=== PATIENT | male | born 1940 | race Caucasian/White ===

== ENCOUNTER 2016-06-11 14:22 | Emergency (ER) | payer OTHER ==
--- NOTE | 2016-06-11 14:51 | ED ---
SOB HPI - General Chief Complaint: Shortness of Breath Stated Complaint: SOB Time Seen by Provider: 06/11/16 14:46 Source: patient, RN notes reviewed Mode of arrival: wheelchair Limitations: no limitations - History of Present Illness Initial Comments: This is a 75-year-old male with a history of COPD who states he had the onset last night of shortness of breath that got worse this morning also. Chills and sweats last evening. He also states he has chest pain when he coughs or takes a deep breath. He denies coughing up any phlegm at this time. No rhinorrhea no other symptoms to report. MD Complaint: shortness of breath, cough - Related Data Home Medications Medication Instructions Recorded Confirmed Albuterol Sulfate [Proventil Hfa] 1 - 2 puff INHALATION RT-Q4H PRN 06/11/16 Budesonide-Formot 160-4.5 Mcg 2 puff INHALATION RT-BID 06/11/16 06/11/16 [Symbicort 160-4.5 Mcg Inhaler] Cyanocobalamin [Vitamin B-12] 500 mcg PO DAILY 06/11/16 06/11/16 Doxylamine Succinate [Unisom] 25 mg PO HS PRN 06/11/16 06/11/16 Vit A/Vit C/Vit E/Zinc/Copper 1 cap PO BID 06/11/16 06/11/16 [ICAPS SOFTGEL] Previous Rx's Medication Instructions Recorded Oseltamivir [Tamiflu] 75 mg PO Q12HR #10 cap 06/11/16 predniSONE 20 mg PO BID #10 tab 06/11/16 Allergies Allergy/AdvReac Type Severity Reaction Status Date / Time Penicillins Allergy Rash/Hives Verified 06/11/16 15:41 Review of Systems ROS Statement: Those systems with pertinent positive or pertinent negative responses have been documented in the HPI. ROS Other: All systems not noted in ROS Statement are negative. Past Medical History Past Medical History: COPD Additional Past Medical History / Comment(s): back pain History of Any Multi-Drug Resistant Organisms: None Reported Past Psychological History: No Psychological Hx Reported Smoking Status: Former smoker Past Alcohol Use History: None Reported Past Drug Use History: None Reported General Exam - General Exam Comments Initial Comments: This is a well-developed well-nourished awake alert oriented times 3 male Limitations: no limitations General appearance: alert, anxious Head exam: Present: atraumatic, normocephalic, normal inspection Eye exam: Present: normal appearance, PERRL, EOMI. Absent: scleral icterus, conjunctival injection, periorbital swelling ENT exam: Present: mucous membranes dry Neck exam: Present: normal inspection. Absent: tenderness, meningismus, lymphadenopathy Respiratory exam: Present: wheezes, chest wall tenderness, accessory muscle use , decreased breath sounds. Absent: respiratory distress, rales, rhonchi, stridor Cardiovascular Exam: Present: normal rhythm, tachycardia, normal heart sounds. Absent: systolic murmur, diastolic murmur, rubs, gallop, clicks GI/Abdominal exam: Present: soft, normal bowel sounds. Absent: distended, tenderness, guarding, rebound, rigid Extremities exam: Present: normal inspection, full ROM, normal capillary refill. Absent: tenderness, pedal edema, joint swelling, calf tenderness Back exam: Present: normal inspection Neurological exam: Present: alert, oriented X3, CN II-XII intact Psychiatric exam: Present: normal affect, normal mood Skin exam: Present: warm, dry, intact, normal color. Absent: rash Course Vital Signs 06/11/16 06/11/16 06/11/16 14:24 15:16 15:28 Temperature 97.8 F Pulse Rate 109 H 103 H 106 H Respiratory 24 Rate Blood Pressure 144/82 O2 Sat by Pulse 96 Oximetry - Reevaluation(s) Reevaluation #1: 06/11/16 15:43 Patient is feeling improved after the initial treatment. He was informed that he has influenza positive. Medical Decision Making - Medical Decision Making Reevaluation patient reveals he feels much improved this time he wants to go home he'll be discharged on appropriate medication he does have inhalers at home. He is a follow-up with his doctor return when necessary - Lab Data Result diagrams: 06/11/16 14:39 06/11/16 14:39 Lab Results 06/11/16 06/11/16 06/11/16 Range/Units 14:39 14:39 14:39 WBC 3.8 (3.8-10.6) k/uL RBC 4.66 (4.30-5.90) m/uL Hgb 13.8 (13.0-17.5) gm/dL Hct 42.9 (39.0-53.0) % MCV 92.1 (80.0-100.0) fL MCH 29.7 (25.0-35.0) pg MCHC 32.3 (31.0-37.0) g/dL RDW 15.1 (11.5-15.5) % PT (9.0-12.0) sec INR (<1.1) APTT (22.0-30.0) sec Sodium 143 (137-145) mmol/L Potassium 3.9 (3.5-5.1) mmol/L Chloride 107 (98-107) mmol/L Carbon Dioxide 24 (22-30) mmol/L Anion Gap 12 mmol/L BUN 12 (9-20) mg/dL Creatinine 0.78 (0.66-1.25) mg/dL Est GFR (MDRD) Af Amer >60 (>60 ml/min/1.73 sqM) Est GFR (MDRD) Non-Af >60 (>60 ml/min/1.73 sqM) Glucose 164 H (74-99) mg/dL Calcium 8.5 (8.4-10.2) mg/dL Magnesium 2.0 (1.6-2.3) mg/dL Total Bilirubin 0.6 (0.2-1.3) mg/dL AST 36 (17-59) U/L ALT 32 (21-72) U/L Alkaline Phosphatase 123 (38-126) U/L Total Creatine Kinase 180 H (55-170) U/L CK-MB (CK-2) 1.6 (0.0-2.4) ng/mL CK-MB (CK-2) Rel Index 0.9 Troponin I <0.012 (0.000-0.034) ng/mL NT-Pro-B Natriuret Pep pg/mL Total Protein 7.4 (6.3-8.2) g/dL Albumin 4.3 (3.5-5.0) g/dL Influenza Type A RNA (Not Detectd) Influenza Type B (PCR) (Not Detectd) 06/11/16 06/11/16 06/11/16 Range/Units 14:39 14:39 15:07 WBC (3.8-10.6) k/uL RBC (4.30-5.90) m/uL Hgb (13.0-17.5) gm/dL Hct (39.0-53.0) % MCV (80.0-100.0) fL MCH (25.0-35.0) pg MCHC (31.0-37.0) g/dL RDW (11.5-15.5) % PT 11.2 (9.0-12.0) sec INR 1.1 (<1.1) APTT 23.8 (22.0-30.0) sec Sodium (137-145) mmol/L Potassium (3.5-5.1) mmol/L Chloride (98-107) mmol/L Carbon Dioxide (22-30) mmol/L Anion Gap mmol/L BUN (9-20) mg/dL Creatinine (0.66-1.25) mg/dL Est GFR (MDRD) Af Amer (>60 ml/min/1.73 sqM) Est GFR (MDRD) Non-Af (>60 ml/min/1.73 sqM) Glucose (74-99) mg/dL Calcium (8.4-10.2) mg/dL Magnesium (1.6-2.3) mg/dL Total Bilirubin (0.2-1.3) mg/dL AST (17-59) U/L ALT (21-72) U/L Alkaline Phosphatase (38-126) U/L Total Creatine Kinase (55-170) U/L CK-MB (CK-2) (0.0-2.4) ng/mL CK-MB (CK-2) Rel Index Troponin I (0.000-0.034) ng/mL NT-Pro-B Natriuret Pep 55 pg/mL Total Protein (6.3-8.2) g/dL Albumin (3.5-5.0) g/dL Influenza Type A RNA Not Detected (Not Detectd) Influenza Type B (PCR) Detected H (Not Detectd) - EKG Data -: EKG Interpreted by Me EKG shows normal: sinus rhythm (Sinus tachycardia rate of 1 waited. Interval 172 QRS duration 96 QT/QTC of 3:30/[address].) - Radiology Data Radiology results: report reviewed (I did review the imaging and reports no acute findings.), image reviewed Disposition Clinical Impression: Influenza, Bronchospasm, acute Disposition: HOME SELF-CARE Condition: Good Instructions: Bronchospasm (ED), Influenza (ED) Prescriptions: Oseltamivir [Tamiflu] 75 mg PO Q12HR #10 cap predniSONE 20 mg PO BID #10 tab
[2016-06-11 15:10] LABS: Basophils % (A) 0 %; CH 29.5; CHCM 32.2; Eosinophils # (A) 0.1 k/uL (0-0.7); Eosinophils % (A) 2 %; HCT 42.9 % (39.0-53.0); HDW 2.92; HGB 13.8 gm/dL (13.0-17.5); Hypochromasia Slight; Luc # (Auto) 0.07; Luc % (Auto) 2; Lymphocytes # (A) 0.3 k/uL (1.0-4.8); Lymphocytes % (A) 9 %; MCH 29.7 pg (25.0-35.0); MCHC 32.3 g/dL (31.0-37.0); MCV 92.1 fL (80.0-100.0); Monocytes # (A) 0.3 k/uL (0-1.0); Monocytes % (A) 8 %; Neutrophils % (A) 80 %; RBC 4.66 m/uL (4.30-5.90); RDW 15.1 % (11.5-15.5); WBC 3.8 k/uL (3.8-10.6); WBC (Perox) 3.87
[2016-06-11] MEDS: SODIUM CHLORIDE 0.9% 1,000 ML IV STA (15:15)
[2016-06-11] MEDS: methylPREDNISolone SOD SUCCI 125 MG/2 ML VIAL IV STA (15:15)
[2016-06-11] MEDS: IPRATROPIUM-ALBUTEROL 3 ML NEB INHALATION STA (15:17)
[2016-06-11 15:20] LABS: ALT 32 U/L (21-72); AST 36 U/L (17-59); Alkaline Phosphatase 123 U/L (38-126); Anion Gap 12 mmol/L; Blood Urea Nitrogen 12 mg/dL (9-20); Calcium 8.5 mg/dL (8.4-10.2); Carbon Dioxide 24 mmol/L (22-30); Chloride 107 mmol/L (98-107); Glucose 164 mg/dL (74-99); Non-African American GFR(MDRD) >60 (>60 ml/min/1.73 sqM); Potassium 3.9 mmol/L (3.5-5.1); Sodium 143 mmol/L (137-145); Total Bilirubin 0.6 mg/dL (0.2-1.3); Total Protein 7.4 g/dL (6.3-8.2)
[2016-06-11 15:28] LABS: Creatine Kinase 180 U/L (55-170)
[2016-06-11 15:36] LABS: INR 1.1 (<1.1); Partial Thromboplastin Time 23.8 sec (22.0-30.0); Prothrombin Time 11.2 sec (9.0-12.0)
[2016-06-11 15:41] LABS: Creatine Kinase MB 1.6 ng/mL (0.0-2.4); Troponin I <0.012 ng/mL (0.000-0.034)
--- NOTE | 2016-06-11 16:21 | XR ---
EXAMINATION TYPE: XR chest 2V DATE OF EXAM: 06/11/2016 4:15 PM COMPARISON: Prior chest x-ray November 2011 HISTORY: Difficulty breathing, chills, COPD TECHNIQUE: Frontal and lateral views of the chest are obtained. FINDINGS: There is no focal air space opacity, pleural effusion, or pneumothorax seen. The cardiac silhouette size is within normal limits. Prominent lung volumes again noted. There are overlying car diac leads. The osseous structures are intact. IMPRESSION: No acute cardiopulmonary process.
[2016-06-11] MEDS: OSELTAMIVIR 75 MG CAP PO STA (16:36)
[2016-06-11 16:37] VITALS: BP 139/69; PULSE 100; RESP 20; TEMP 100.5
[2016-06-11] MEDS: ACETAMINOPHEN TAB 500 MG TAB PO STA (16:37)
[2016-06-11 16:47] LABS: Manual Review Performed; Polychromasia Present
== END 2016-06-11 16:48 | disposition home or self-care (01) ==
LOC: EC 14:22
DX: J98.01 Acute bronchospasm (principal); J11.1 Influenza due to unidentified influenza virus with other respiratory manifestations; R00.0 Tachycardia, unspecified; J44.9 Chronic obstructive pulmonary disease, unspecified; Z87.891 Personal history of nicotine dependence; Z79.51 Long term (current) use of inhaled steroids; Z79.899 Other long term (current) drug therapy; Z88.0 Allergy status to penicillin
CPT/HCPCS: 36415; 94640; 83880; 80053; 82550; 82553; 83735; 84484; 85025; 85610; 85730; 87040; 87502; 71020; 99285; 96374; 96361; J2930; 93005

== ENCOUNTER 2017-09-04 13:43 | Emergency (ER) | payer OTHER ==
[2017-09-04 14:11] VITALS: BP 130/72; PULSE 80; RESP 20; TEMP 97.9
[2017-09-04] MEDS ORDERED: PROPARACAINE 0.5% OPHTH DROPS 15 ML BTL BOTH EYES STA (14:48)
[2017-09-04] MEDS ORDERED: DIPH,PERTUS(ACELL)TETVAC-LF 0.5 ML VIAL IM ONE (15:17)
--- NOTE | 2017-09-04 15:17 | ED ---
General Adult HPI - General Chief complaint: Eye Problems Stated complaint: FB in eye Time Seen by Provider: 09/04/17 14:47 Source: patient, RN notes reviewed Mode of arrival: ambulatory Limitations: no limitations - History of Present Illness Initial comments: 76-year-old male presents to the emergency department for a chief complaint of foreign body in left eye. Patient states that yesterday he was cutting an exhaust on a car when a piece of metal got in his eye. Patient states it has been painful since then. Patient denies any other injuries. Patient states his vision seems somewhat blurry because his eye producing tears. Patient denies any black curtains or flashing lights. Patient denies any pain in the right eye. Patient has no other complaints at this time including shortness of breath, chest pain, abdominal pain, nausea or vomiting, headache, or visual changes. - Related Data Home Medications Medication Instructions Recorded Confirmed Albuterol Sulfate [Proventil Hfa] 1 - 2 puff INHALATION RT-Q4H PRN 06/11/16 Budesonide-Formot 160-4.5 Mcg 2 puff INHALATION RT-BID 06/11/16 06/11/16 [Symbicort 160-4.5 Mcg Inhaler] Cyanocobalamin [Vitamin B-12] 500 mcg PO DAILY 06/11/16 06/11/16 Doxylamine Succinate [Unisom] 25 mg PO HS PRN 06/11/16 06/11/16 Vit A/Vit C/Vit E/Zinc/Copper 1 cap PO BID 06/11/16 06/11/16 [ICAPS SOFTGEL] Previous Rx's Medication Instructions Recorded Oseltamivir [Tamiflu] 75 mg PO Q12HR #10 cap 06/11/16 predniSONE 20 mg PO BID #10 tab 06/11/16 Erythromycin Ophth Oint [Romycin 1 applic LEFT EYE Q6H 5 Days gm 09/04/17 Ophth Oint] Allergies Allergy/AdvReac Type Severity Reaction Status Date / Time Penicillins Allergy Rash/Hives Verified 09/04/17 14:11 Review of Systems ROS Statement: Those systems with pertinent positive or pertinent negative responses have been documented in the HPI. ROS Other: All systems not noted in ROS Statement are negative. Past Medical History Past Medical History: COPD Additional Past Medical History / Comment(s): back pain History of Any Multi-Drug Resistant Organisms: None Reported Past Psychological History: No Psychological Hx Reported Smoking Status: Former smoker Past Alcohol Use History: None Reported Past Drug Use History: None Reported General Exam Limitations: no limitations General appearance: alert, in no apparent distress Head exam: Present: atraumatic, normocephalic, normal inspection Eye exam: Present: PERRL, EOMI, conjunctival injection, other (There is a submillimeter foreign body noted at about 9:00 in the iris of the cornea left eye). Absent: scleral icterus, nystagmus, periorbital swelling, periorbital tenderness ENT exam: Present: normal exam, normal oropharynx, mucous membranes moist, TM's normal bilaterally Neck exam: Present: normal inspection, full ROM. Absent: tenderness, meningismus, lymphadenopathy Respiratory exam: Present: normal lung sounds bilaterally. Absent: respiratory distress, wheezes, rales, rhonchi, stridor Cardiovascular Exam: Present: regular rate, normal rhythm, normal heart sounds. Absent: systolic murmur, diastolic murmur, rubs, gallop, clicks Course Vital Signs 09/04/17 14:09 Temperature 97.9 F Pulse Rate 80 Respiratory 20 Rate Blood Pressure 130/72 O2 Sat by Pulse 98 Oximetry Medical Decision Making - Medical Decision Making 76-year-old male presents to the emergency department for a chief complaint of corneal foreign body 2 days. Patient was cutting an exhaust pipe when he felt a foreign body in his left eye. Patient denies visual changes besides blurriness from tear production. Patient states the eye is painful. Patient denies any headache or visual changes in the other eye. On exam there is a small submillimeter foreign body noted in the left eye cornea about 9:00. The eye was numbed with proparacaine and foreign body was removed with a sterile Q- tip. Rust ring did remain. Dr. Tejada used [place] brush to remove the rust ring along with a slit lamp. No complications. Rust ring was removed without difficulty. No other foreign bodies in the eye upon inspection and including under both lids. Patient will be discharged home with erythromycin ophthalmic ointment. He is to follow up with primary care. If symptoms continue he is to follow-up with an certified surgical first assistant. He is aware he can return to the emergency department if he has any other worsening symptoms. Disposition Clinical Impression: Corneal foreign body Disposition: HOME SELF-CARE Condition: Good Instructions: Corneal Abrasion (ED), Eye Foreign Body (ED) Additional Instructions: Please use eye ointment every 4-6 hours as directed. Use ice packs for comfort. If pain continues for 2-3 days follow-up with ophthalmology. Follow up with primary care as well. Return to the emergency department if you have any worsening symptoms. Prescriptions: Erythromycin Ophth Oint [Romycin Ophth Oint] 1 applic LEFT EYE Q6H 5 Days gm Is patient prescribed a controlled substance at d/c from ED?: No Referrals: [facility] [Primary Care Provider] - 1-2 days Jeremías Garcia MD [STAFF PHYSICIAN] - 1-2 days Time of Disposition: 15:46
== END 2017-09-04 15:52 | disposition home or self-care (01) ==
LOC: EC 13:43
DX: T15.02XA Foreign body in cornea, left eye, initial encounter (principal); Z23 Encounter for immunization; J44.9 Chronic obstructive pulmonary disease, unspecified; Z87.891 Personal history of nicotine dependence; Z79.51 Long term (current) use of inhaled steroids; Z79.899 Other long term (current) drug therapy; Z88.0 Allergy status to penicillin; X58.XXXA Exposure to other specified factors, initial encounter; Y93.89 Activity, other specified; Y92.89 Other specified places as the place of occurrence of the external cause
CPT/HCPCS: 65222; 90471; 90715; 99283

== ENCOUNTER 2018-06-23 20:05 | Emergency (ER) | payer OTHER ==
[2018-06-23 20:40] VITALS: RESP 18
[2018-06-23] MEDS ORDERED: ONDANSETRON 4 MG/2 ML VIAL IVP STA (20:44)
[2018-06-23] MEDS ORDERED: PANTOPRAZOLE 40 MG/10 ML VIAL IVP STA (20:44)
[2018-06-23] MEDS ORDERED: SODIUM CHLORIDE 0.9% 1,000 ML IV STA (20:44)
--- NOTE | 2018-06-23 20:53 | ED ---
General Adult HPI - General Chief complaint: Nausea/Vomiting/Diarrhea Stated complaint: Abd Pain Time Seen by Provider: 06/23/18 20:33 Source: patient, family, RN notes reviewed Mode of arrival: ambulatory Limitations: no limitations - History of Present Illness Initial comments: Chief complaint and history of present illness this is a 77-year-old man here with his family member. The patient has had nausea vomiting and diarrhea since last night. No blood in the vomit or diarrhea. He does not think he had any bad food. He has lower abdominal cramping. Never had any problem like this before. - Related Data Home Medications Medication Instructions Recorded Confirmed Albuterol Sulfate [Proventil Hfa] 1 - 2 puff INHALATION RT-Q4H PRN 06/11/16 06/11/16 Budesonide-Formot 160-4.5 Mcg 2 puff INHALATION RT-BID 06/11/16 06/11/16 [Symbicort 160-4.5 Mcg Inhaler] Cyanocobalamin [Vitamin B-12] 500 mcg PO DAILY 06/11/16 06/11/16 Doxylamine Succinate [Unisom] 25 mg PO HS PRN 06/11/16 06/11/16 Vit A/Vit C/Vit E/Zinc/Copper 1 cap PO BID 06/11/16 06/11/16 [ICAPS SOFTGEL] Previous Rx's Medication Instructions Recorded Oseltamivir [Tamiflu] 75 mg PO Q12HR #10 cap 06/11/16 predniSONE 20 mg PO BID #10 tab 06/11/16 Erythromycin Ophth Oint [Romycin 1 applic LEFT EYE Q6H 5 Days gm 09/04/17 Ophth Oint] Ondansetron Odt [Zofran ODT] 4 mg PO Q8HR PRN #5 tab 06/24/18 Allergies Allergy/AdvReac Type Severity Reaction Status Date / Time Penicillins Allergy Rash/Hives Verified 09/04/17 14:11 Review of Systems ROS Statement: Those systems with pertinent positive or pertinent negative responses have been documented in the HPI. Review of systems. Patient denies headache no visual acuity changes. Denies any chest pain or shortness of breath. Mild lower abdominal cramping. He rep orts she's had as many episodes of vomiting as he has had diarrhea. No blood again. The patient denies any neuro deficits. All systems were otherwise reviewed. Past medical problems COPD. The patient quit smoking 25 years ago. Patient has chronic back pain. Surgeries include tonsils and adenoids and his years. Family history Brother and father both had cancer but of unknown types to him. The patient has ALLERGIES to penicillin which causes a rash only. Again noted that he quit smoking over 25 years ago quit drinking over 50 years ago ROS Other: All systems not noted in ROS Statement are negative. Past Medical History Past Medical History: COPD Additional Past Medical History / Comment(s): back pain History of Any Multi-Drug Resistant Organisms: None Reported Past Surgical History: No Surgical Hx Reported Past Psychological History: No Psychological Hx Reported Smoking Status: Former smoker Past Alcohol Use History: None Reported Past Drug Use History: None Reported General Exam - General Exam Comments Initial Comments: General: The patient is awake and alert, here with a chief complaint of vomiting and diarrhea. Vital signs shows temperature 98.2 pulse 97 respiratory rate 22 pulse ox 97% room air blood pressure 132/70 Eye: Pupils are equal, round and reactive to light, extra-ocular movements are intact; there is normal conjunctiva bilaterally. No signs of icterus. Ears, nose, mouth and throat: There are moist mucous membranes and no oral lesions. Patient is nearly edentulous. Neck: The neck is supple, there is no tenderness. Cardiovascular: There is a regular rate and rhythm. No murmur, rub or gallop is appreciated. Respiratory: Lungs are clear to auscultation, respirations are non-labored, breath sounds are equal. No wheezes, stridor, rales, or rhonchi. Gastrointestinal: Mild tenderness with deep palpation. No organomegaly appreciated. Active bowel sounds. No rebound or referred pain. Back: There is no tenderness to palpation in the midline.. Musculoskeletal: Normal ROM, no tenderness, There is no pedal edema. There is no calf tenderness or swelling. Sensation intact.. Neurological: No complaint of any dizziness, no focal or lateralizing findings. Skin: Skin is warm and dry and no rashes or lesions are noted. Psychiatric: Cooperative, Limitations: no limitations Course Vital Signs 06/23/18 06/23/18 06/23/18 20:06 20:39 21:29 Temperature 98.2 F Pulse Rate 97 89 82 Respiratory 22 18 18 Rate Blood Pressure 132/70 133/79 124/76 O2 Sat by Pulse 97 93 L 93 L Oximetry 04/10/19 23:32 Temperature Pulse Rate 83 Respiratory 18 Rate Blood Pressure 120/77 O2 Sat by Pulse 93 L Oximetry Medical Decision Making - Medical Decision Making Medical decision making; is a 77-year-old male here with family. The patient has been complaining of nausea vomiting and diarrhea for 24 hours. Minimal discomfort mild cramping lower abdomen. No blood in the vomit or stool. The patient's white count is 4.5 hemoglobin 13 hematocrit 41 with potassium 3.5. BUN 14 creatinine 0.6 with a GFR greater than 90. Glucose 182. Total bilirubin mildly elevated at 1.6 AST mildly elevated at 106 ALT normal. Amylase lipase within normal limits. C. diff negative Patient had ultrasound of the right upper quadrant. The radiologist's findings include increased hepatic echotexture most suggestive of hepatic fatty infiltration. No focal hepatic abnormalities. The gallbladder echo densities suggesting gallbladder sludge or possible tiny gallstones. No evidence of gallbladder wall thickening. No. Cholecystic fluid identified., Bile duct is a non-dilated measuring 2.3 mm. Pancreas is not well-defined are visualized. Right kidney is of normal size and echotexture. No hydronephrosis. Impression increased hepatic echotexture most suggestive of hepatic fatty infiltration. Gallbladder echo densities suggesting gallbladder sludge or possible tiny gallstones. No evidence of gallbladder wall thickening or biliary dilatation. Read by Dr. Alegria Chest x-ray is done AP and lateral view radiologist's impression is a mild coarsening of the lung markings consistent with mild interstitial pneumonia that is unchanged compared to last exam. No heart failure. As read by Dr. Love Patient does not have a cough nor fever nor white count. X-ray of the abdomen was done and reviewed by radiologist his impression is intraperitoneal space; bowel gas pattern is unremarkable. No evidence of bowel obstruction or pneumoperitoneum. No bowel dilatation. 2 small calcifications projecting to the right upper quadrant suggesting calcified gallstones. Radiopaque densities within bowel could be a differential possibility. Mild degenerative changes involving the lumbar spine. Impression no evidence of bowel obstruction or pneumoperitoneum. Probable small calcified gallstones. Gallbladder ultrasound may be considered for further evaluation. As read by Dr. Alegria This time the patient's leg in bed drinking water without difficulty states he feels much better. No cramps, patient will be advised to use Pepto-Bismol. He'll be given prescription for Zofran to be taken as directed. Advance his diet. We did discuss gallbladder sludge and possible stones. Patient be advised to follow-up with family physician. - Lab Data Result diagrams: 06/23/18 20:46 06/23/18 20:46 Lab Results 06/23/18 06/23/18 06/23/18 Range/Units 20:46 20:46 23:45 WBC 4.5 (3.8-10.6) k/uL RBC 4.18 L (4.30-5.90) m/uL Hgb 13.5 (13.0-17.5) gm/dL Hct 41.0 (39.0-53.0) % MCV 98.0 (80.0-100.0) fL MCH 32.2 (25.0-35.0) pg MCHC 32.9 (31.0-37.0) g/dL RDW 14.9 (11.5-15.5) % Plt Count 53 L (150-450) k/uL Neutrophils % 85 % Lymphocytes % 8 % Monocytes % 4 % Eosinophils % 1 % Basophils % 0 % Neutrophils # 3.8 (1.3-7.7) k/uL Lymphocytes # 0.4 L (1.0-4.8) k/uL Monocytes # 0.2 (0-1.0) k/uL Eosinophils # 0.1 (0-0.7) k/uL Basophils # 0.0 (0-0.2) k/uL Manual Slide Review Performed Sodium 137 (137-145) mmol/L Potassium 3.5 (3.5-5.1) mmol/L Chloride 104 (98-107) mmol/L Carbon Dioxide 23 (22-30) mmol/L Anion Gap 10 mmol/L BUN 14 (9-20) mg/dL Creatinine 0.61 L (0.66-1.25) mg/dL Est GFR (CKD-EPI)AfAm >90 (>60 ml/min/1.73 sqM) Est GFR (CKD-EPI)NonAf >90 (>60 ml/min/1.73 sqM) Glucose 182 H (74-99) mg/dL Calcium 8.5 (8.4-10.2) mg/dL Total Bilirubin 1.6 H (0.2-1.3) mg/dL AST 106 H (17-59) U/L ALT 61 (21-72) U/L Alkaline Phosphatase 98 (38-126) U/L Total Protein 6.4 (6.3-8.2) g/dL Albumin 3.7 (3.5-5.0) g/dL Amylase <30 L (30-110) U/L Lipase 46 (23-300) U/L C. difficile (EIA) Intrp Negative (Negative) Disposition Clinical Impression: Gastroenteritis Disposition: HOME SELF-CARE Condition: Fair Instructions (If sedation given, give patient instructions): Acute Nausea and Vomiting (ED), Acute Diarrhea (ED) Additional Instructions: Advance diet as, use Pepto-Bismol as directed. Use Zofran to control nausea as directed. Follow-up with family physician return emergency room as needed. Prescriptions: Ondansetron Odt [Zofran ODT] 4 mg PO Q8HR PRN #5 tab PRN Reason: Nausea Is patient prescribed a controlled substance at d/c from ED?: No Referrals: [facility] [Primary Care Provider] - 1-2 days Time of Disposition: 01:15
[2018-06-23 21:06] LABS: ALT 61 U/L (21-72); AST 106 U/L (17-59); Albumin 3.7 g/dL (3.5-5.0); Alkaline Phosphatase 98 U/L (38-126); Amylase <30 U/L (30-110); Anion Gap 10 mmol/L; Blood Urea Nitrogen 14 mg/dL (9-20); Calcium 8.5 mg/dL (8.4-10.2); Carbon Dioxide 23 mmol/L (22-30); Chloride 104 mmol/L (98-107); Glucose 182 mg/dL (74-99); Lipase 46 U/L (23-300); Potassium 3.5 mmol/L (3.5-5.1); Sodium 137 mmol/L (137-145); Total Bilirubin 1.6 mg/dL (0.2-1.3); Total Protein 6.4 g/dL (6.3-8.2)
[2018-06-23 21:12] LABS: Basophils % (A) 0 %; Eosinophils # (A) 0.1 k/uL (0-0.7); Eosinophils % (A) 1 %; HGB 13.5 gm/dL (13.0-17.5); Lymphocytes # (A) 0.4 k/uL (1.0-4.8); Lymphocytes % (A) 8 %; MCH 32.2 pg (25.0-35.0); MCHC 32.9 g/dL (31.0-37.0); Mean Platelet Volume 8.5; Monocytes # (A) 0.2 k/uL (0-1.0); Monocytes % (A) 4 %; Neutrophils # (A) 3.8 k/uL (1.3-7.7); Neutrophils % (A) 85 %; RBC 4.18 m/uL (4.30-5.90); RDW 14.9 % (11.5-15.5); WBC 4.5 k/uL (3.8-10.6)
--- NOTE | 2018-06-23 21:17 | XR ---
EXAMINATION TYPE: XR chest 2V DATE OF EXAM: 06/23/2018 COMPARISON: 06/11/2016 HISTORY: Difficulty breathing and chills TECHNIQUE: Frontal and lateral views of the chest are obtained. FINDINGS: Heart and mediastinum are normal. There is some coarsening of interstitial markings. There is no pleural effusion. Bony thorax is intact. There is no evidence of a pulmonary mass. Thoracic sp ine is intact. IMPRESSION: Mild coarsening of the lung markings consistent with mild interstitial pneumonia that is unchanged compared to last exam. No heart failure.
[2018-06-23 21:25] LABS: Platelet Count 53 k/uL (150-450)
--- NOTE | 2018-06-23 22:32 | XR ---
EXAM: XR Abdomen, 1 View CLINICAL HISTORY: Reason: Gastroenteritis, lower abdominal cramping TECHNIQUE: Frontal view of the abdomen/pelvis - upright COMPARISON: None available FINDINGS: Intraperitoneal space: Bowel gas pattern is unremarkable. No evidence of bowel obstruction or pneumoperitoneum. Gastrointestinal tract: No bowel dilatation. Organs: 2 small calcifications projecting to right upper quadrant suggesting calcified gallstones. Radiopaque densities within bowel would be a differential possibility. Bones/joints: Mild degenerative changes involve lumbar spine. IMPRESSION: No evidence of bowel obstruction or pneumoperitoneum. Probable small calcified gallstones. Gallbladder ultrasound may be considered for further evaluation.
[2018-06-23 23:34] VITALS: PULSE 83
--- NOTE | 2018-06-24 00:51 | US ---
EXAM: US Abdomen Limited, Right Upper Quadrant CLINICAL HISTORY: Reason: Gallstones, elev bilirubin, right-sided abdom pain TECHNIQUE: Real-time ultrasound of the right upper quadrant with image documentation. COMPARISON: Abdominal radiographs 06/23/2018 FINDINGS: Liver: Increased hepatic echotexture most suggestive of hepatic fatty infiltration. No focal hepatic abnormalities. Gallbladder: Gallbladder echodensities suggesting gallbladder sludge or possible tiny gallstones. No evidence of gallbladder wall thickening. No pericholecystic fluid identified. Common bile duct: Common bile duct is nondilated measuring 2.3 mm. Pancreas: Pancreas is not well-visualized. Right kidney: Right kidney is of normal size and echotexture. No hydronephrosis. IMPRESSION: Increased hepatic echotexture most suggestive of hepatic fatty infiltration. Gallbladder echodensities suggesting gallbladder sludge or possible tiny gallstones. No evidence of gallbladder wall thickening or biliary dilatation.
[2018-06-24 01:28] VITALS: BP 122/80; TEMP 98
== END 2018-06-24 01:26 | disposition home or self-care (01) ==
LOC: EC 20:05
DX: K52.9 Noninfective gastroenteritis and colitis, unspecified (principal); J44.9 Chronic obstructive pulmonary disease, unspecified; Z87.891 Personal history of nicotine dependence; Z79.51 Long term (current) use of inhaled steroids; Z79.899 Other long term (current) drug therapy; Z88.0 Allergy status to penicillin; Z80.8 Family history of malignant neoplasm of other organs or systems
CPT/HCPCS: 36415; 80053; 82150; 83690; 85025; 87324; 71046; 74018; 99284; 96374; 96375; 96361; J2405; C9113; 76705

== ENCOUNTER 2019-03-11 12:53 | Inpatient (IN) | payer OTHER, MEDICARE ==
[2019-03-11 14:08] LABS: Basophils % (A) 0 %; Eosinophils # (A) 0.1 k/uL (0-0.7); Eosinophils % (A) 2 %; HCT 40.1 % (39.0-53.0); Lymphocytes # (A) 0.4 k/uL (1.0-4.8); Lymphocytes % (A) 17 %; MCH 32.3 pg (25.0-35.0); MCHC 32.4 g/dL (31.0-37.0); MCV 99.5 fL (80.0-100.0); Mean Platelet Volume 8.5; Monocytes # (A) 0.2 k/uL (0-1.0); Monocytes % (A) 8 %; Neutrophils # (A) 1.8 k/uL (1.3-7.7); Neutrophils % (A) 72 %; RBC 4.03 m/uL (4.30-5.90); RDW 13.8 % (11.5-15.5); WBC 2.6 k/uL (3.8-10.6)
[2019-03-11 14:17] LABS: Platelet Count 65 k/uL (150-450)
[2019-03-11 14:21] LABS: ALT 18 U/L (4-49); AST 40 U/L (17-59); African American GFR (CKD) >90 (>60 ml/min/1.73 sqM); Albumin 3.6 g/dL (3.5-5.0); Alkaline Phosphatase 134 U/L (38-126); Amylase 37 U/L (30-110); Anion Gap 7 mmol/L; Blood Urea Nitrogen 16 mg/dL (9-20); Calcium 8.7 mg/dL (8.4-10.2); Carbon Dioxide 24 mmol/L (22-30); Chloride 110 mmol/L (98-107); Glucose 103 mg/dL (74-99); Non-African American GFR(CKD) >90 (>60 ml/min/1.73 sqM); Potassium 3.7 mmol/L (3.5-5.1); Sodium 141 mmol/L (137-145); Total Bilirubin 0.9 mg/dL (0.2-1.3); Total Protein 6.6 g/dL (6.3-8.2)
--- NOTE | 2019-03-11 14:28 | ED ---
Abdominal Pain HPI - General Chief Complaint: Abdominal Pain Stated Complaint: Abd pain Time Seen by Provider: 03/11/19 14:06 Source: patient Mode of arrival: ambulatory Limitations: no limitations - History of Present Illness Initial Comments: 78-year-old male presenting for abdominal pain times one week with diarrhea. Patient states he noticed his abdomen is enlarging and he had diarrhea last week that subsided however he continued to have severe abdominal pain and right sided. Patient states he feels that his abdomen stretching is very taut and distended. Patient denies any chest pain or increased shortness of breath is baseline. Patient states she is only short of breath he does not want any treatment for he states he'll take his inhaler if he needs it as he has chronic COPD. Patient denies any nausea or vomiting. Patient denies a known history of cancer. Patient states he was a previous alcoholic denies a known history of cirrhosis. Patient denies fevers or flulike symptoms. Patient denies a known history of liver cancer. Patient has no other complaints otherwise nontoxic appearing on arrival, does appear SOB - Related Data Home Medications Medication Instructions Recorded Confirmed Albuterol Sulfate [Proventil Hfa] 1 - 2 puff INHALATION RT-Q4H PRN 06/11/16 06/11/16 Budesonide-Formot 160-4.5 Mcg 2 puff INHALATION RT-BID 06/11/16 06/11/16 [Symbicort 160-4.5 Mcg Inhaler] Cyanocobalamin [Vitamin B-12] 500 mcg PO DAILY 06/11/16 06/11/16 Doxylamine Succinate [Unisom] 25 mg PO HS PRN 06/11/16 06/11/16 Vit A/Vit C/Vit E/Zinc/Copper 1 cap PO BID 06/11/16 06/11/16 [ICAPS SOFTGEL] Previous Rx's Medication Instructions Recorded Oseltamivir [Tamiflu] 75 mg PO Q12HR #10 cap 06/11/16 predniSONE 20 mg PO BID #10 tab 06/11/16 Erythromycin Ophth Oint [Romycin 1 applic LEFT EYE Q6H 5 Days gm 09/04/17 Ophth Oint] Ondansetron Odt [Zofran ODT] 4 mg PO Q8HR PRN #5 tab 06/24/18 Allergies Allergy/AdvReac Type Severity Reaction Status Date / Time Penicillins Allergy Rash/Hives Verified 03/11/19 13:06 Review of Systems ROS Statement: Those systems with pertinent positive or pertinent negative responses have been documented in the HPI. ROS Other: All systems not noted in ROS Statement are negative. Past Medical History Past Medical History: COPD Additional Past Medical History / Comment(s): back pain History of Any Multi-Drug Resistant Organisms: None Reported Past Surgical History: No Surgical Hx Reported Past Psychological History: No Psychological Hx Reported Smoking Status: Former smoker Past Alcohol Use History: None Reported Past Drug Use History: None Reported General Exam - General Exam Comments Initial Comments: General: The patient is awake and alert, in no distress Eye: +3 mm pupils are equal, round and reactive to light, extra-ocular movements are intact. No nystagmus. There is normal conjunctiva bilaterally. No signs of icterus. Ears, nose, mouth and throat: There are moist mucous membranes and no oral lesions. Neck: The neck is supple, there is no tenderness or JVD. Cardiovascular: There is a regular rate and rhythm. No murmur, rub or gallop is appreciated. Respiratory: respirations are non-labored, breath sounds are equal. Mild expiratory wheeze, with rhonchi. No stridor, rales, or rhonchi. Gastrointestinal: Soft, distended, prominent vasculature on abdomen, diffusely tender abdomen abdomen without masses noted hepatomegaly. There is no rebound or guarding present. Musculoskeletal: Normal ROM, no tenderness. Strength 5/5. Sensation intact. Pulses equal bilaterally 2+. Neurological: A&O x 3. CN II-XII intact grossly, There are no obvious motor or sensory deficits. Coordination appears grossly intact. Speech is normal. Skin: Skin is warm and dry and no rashes or lesions are noted. Psychiatric: Cooperative, appropriate mood & affect, normal judgment. Limitations: no limitations Course Vital Signs 03/11/19 03/11/19 03/11/19 13:03 14:58 15:00 Temperature 97.4 F L Pulse Rate 97 Respiratory 18 24 22 Rate Blood Pressure 139/83 O2 Sat by Pulse 94 L Oximetry 03/11/19 16:20 Temperature Pulse Rate 72 Respiratory 22 Rate Blood Pressure O2 Sat by Pulse 97 Oximetry Medical Decision Making - Medical Decision Making 78-year-old male presenting for abdominal pain. Obvious distention on physical examination. History of alcohol abuse, denies current use. CT revealed cirrhosis as well as ascites given the amount of ascites in all 4 quadrants I feel this time patient needs paracentesis. No fevers. Patient was offered admission or outpatient paracentesis he states he would prefer admission given the amount of pain. Patient has been ordered when necessary pain medications and will be admitted to the hospital for drainage of ascites by interventional radiology gastroenterology on consultation discussed case with any provider Dr. Rueda who spoke with admitting provider Dr. Win. - Lab Data Result diagrams: 03/11/19 13:53 03/11/19 13:53 Lab Results 03/11/19 03/11/19 03/11/19 Range/Units 13:53 13:53 14:33 WBC 2.6 L (3.8-10.6) k/uL RBC 4.03 L (4.30-5.90) m/uL Hgb 13.0 (13.0-17.5) gm/dL Hct 40.1 (39.0-53.0) % MCV 99.5 (80.0-100.0) fL MCH 32.3 (25.0-35.0) pg MCHC 32.4 (31.0-37.0) g/dL RDW 13.8 (11.5-15.5) % Plt Count 65 L (150-450) k/uL Neutrophils % 72 % Lymphocytes % 17 % Monocytes % 8 % Eosinophils % 2 % Basophils % 0 % Neutrophils # 1.8 (1.3-7.7) k/uL Lymphocytes # 0.4 L (1.0-4.8) k/uL Monocytes # 0.2 (0-1.0) k/uL Eosinophils # 0.1 (0-0.7) k/uL Basophils # 0.0 (0-0.2) k/uL Manual Slide Review Performed RBC Morphology Normal Sodium 141 (137-145) mmol/L Potassium 3.7 (3.5-5.1) mmol/L Chloride 110 H (98-107) mmol/L Carbon Dioxide 24 (22-30) mmol/L Anion Gap 7 mmol/L BUN 16 (9-20) mg/dL Creatinine 0.61 L (0.66-1.25) mg/dL Est GFR (CKD-EPI)AfAm >90 (>60 ml/min/1.73 sqM) Est GFR (CKD-EPI)NonAf >90 (>60 ml/min/1.73 sqM) Glucose 103 H (74-99) mg/dL Plasma Lactic Acid [place] (0.7-2.0) mmol/L Calcium 8.7 (8.4-10.2) mg/dL Total Bilirubin 0.9 (0.2-1.3) mg/dL AST 40 (17-59) U/L ALT 18 (4-49) U/L Alkaline Phosphatase 134 H (38-126) U/L NT-Pro-B Natriuret Pep 127 pg/mL Total Protein 6.6 (6.3-8.2) g/dL Albumin 3.6 (3.5-5.0) g/dL Amylase 37 (30-110) U/L Lipase 63 (23-300) U/L 03/11/19 Range/Units 14:33 WBC (3.8-10.6) k/uL RBC (4.30-5.90) m/uL Hgb (13.0-17.5) gm/dL Hct (39.0-53.0) % MCV (80.0-100.0) fL MCH (25.0-35.0) pg MCHC (31.0-37.0) g/dL RDW (11.5-15.5) % Plt Count (150-450) k/uL Neutrophils % % Lymphocytes % % Monocytes % % Eosinophils % % Basophils % % Neutrophils # (1.3-7.7) k/uL Lymphocytes # (1.0-4.8) k/uL Monocytes # (0-1.0) k/uL Eosinophils # (0-0.7) k/uL Basophils # (0-0.2) k/uL Manual Slide Review RBC Morphology Sodium (137-145) mmol/L Potassium (3.5-5.1) mmol/L Chloride (98-107) mmol/L Carbon Dioxide (22-30) mmol/L Anion Gap mmol/L BUN (9-20) mg/dL Creatinine (0.66-1.25) mg/dL Est GFR (CKD-EPI)AfAm (>60 ml/min/1.73 sqM) Est GFR (CKD-EPI)NonAf (>60 ml/min/1.73 sqM) Glucose (74-99) mg/dL Plasma Lactic Acid [place] 1.9 (0.7-2.0) mmol/L Calcium (8.4-10.2) mg/dL Total Bilirubin (0.2-1.3) mg/dL AST (17-59) U/L ALT (4-49) U/L Alkaline Phosphatase (38-126) U/L NT-Pro-B Natriuret Pep pg/mL Total Protein (6.3-8.2) g/dL Albumin (3.5-5.0) g/dL Amylase (30-110) U/L Lipase (23-300) U/L Disposition Clinical Impression: Ascites, Abdominal pain, Abdominal distention, Cirrhosis Disposition: ADMITTED IP TO THIS [facility] Condition: Stable Is patient prescribed a controlled substance at d/c from ED?: No [facility]errals: [facility] [Primary Care Provider] - 1-2 days Time of Disposition: 16:35 Decision to Admit Reason: Admit from EC Decision Date: 03/11/19 Decision Time: 16:35
--- NOTE | 2019-03-11 16:15 | CT ---
EXAMINATION TYPE: CT abdomen pelvis w con DATE OF EXAM: 03/11/2019 COMPARISON: None HISTORY: Abdominal pain, diarrhea and distention CT DLP: 2228.6 mGycm CONTRAST: CT scan of the abdomen and pelvis is performed without Oral Contrast and with IV Contrast, patient in jected with 100 mL of Isovue 300. FINDINGS: LUNG BASES-: No visible nodule. No infiltrate. LIVER/GB: There is evidence of cholelithiasis. Moderate to large amount of four-quadrant ascites note d. The liver is diminutive in size and noted to demonstrate nodular peripheral contour compatible wit h cirrhotic liver disease. Hypoattenuating lesion is seen within the anterior segment right hepatic l obe measuring 1.1 cm and is nonspecific. No additional lesions evident. PANCREAS: No inflammation. No distinct mass. SPLEEN: Splenomegaly with craniocaudal measurement of 20 cm. ADRENALS: No nodule. No thickening. KIDNEYS/BLADDER: No hydronephrosis. No nephrolithiasis. No distinct renal mass. Urinary bladder g rossly unremarkable. BOWEL: Normal appendix. Normal bowel caliber. No inflammation. GENITAL ORGANS: No gross abnormality. LYMPH NODES: No greater than 1cm abdominal or pelvic lymph nodes are appreciated. AORTA: No significant abnormality. OSSEOUS STRUCTURES: No significant abnormality is seen. OTHER: No significant additional abnormality is seen. IMPRESSION: 1. Cirrhotic liver disease and splenomegaly. 2. Cholelithiasis. 3. Four-quadrant ascites as noted.
--- NOTE | 2019-03-11 16:16 | XR ---
EXAMINATION TYPE: XR chest 2V DATE OF EXAM: 03/11/2019 COMPARISON: 06/23/2018 HISTORY: Shortness of breath TECHNIQUE: Frontal and lateral views of the chest are obtained. FINDINGS: Scattered senescent parenchymal changes noted. Hyperinflation compatible with COPD. No evidence for infiltrate. No evidence for atelectasis. Heart size is stable. Mediastinal structures are stable and grossly unremarkable. No evidence for hilar prominence. Degenerative changes dorsal spine. IMPRESSION: 1. No evidence for acute pulmonary disease.
[2019-03-11] MEDS ORDERED: NALOXONE 0.4 MG/ML 1 ML VIAL IV PRN (16:32)
[2019-03-11] MEDS ORDERED: MORPHINE SULFATE 4 MG/ML SYRINGE IV PRN (16:32)
[2019-03-11] MEDS ORDERED: ONDANSETRON 4 MG/2 ML VIAL IVP PRN (16:44)
[2019-03-11 17:14] LABS: Appearance,Urine Clear (Clear); Bilirubin,Urine Negative (Negative); Blood,Urine Negative (Negative); Color,Urine Yellow; Glucose,Urine (UA) Negative (Negative); Ketones,Urine 1+ (Negative); Leukocyte Esterase,Urine Negative (Negative); Nitrite,Urine Negative (Negative); Protein,Urine Trace (Negative)
[2019-03-11 17:19] LABS: Specific Gravity,Urine >1.050 (1.001-1.035)
[2019-03-11] MEDS: SODIUM CHLORIDE 0.9% 1,000 ML IV SCH (17:48)
[2019-03-11] MEDS ORDERED: DOCUSATE 100 MG CAP PO PRN (18:58)
[2019-03-11] MEDS ORDERED: ALBUTEROL NEBULIZED 2.5 MG/3 ML INHALATION PRN (18:58)
--- NOTE | 2019-03-11 19:06 | P.HPIM ---
History of Present Illness Patient is a 78-year-old male came in with complaints of abdominal distention for a week denied any tenderness patient had segundo is a very about a week ago. Patient denied any is significant history of alcoholism patient used to drink heavily for 40 years ago patient used to smoke and aphasic although patient appears to have history of COPD. Patient was having some shortness of breath because of abdominal distention although doesn't have any wheezing on exam denied any nausea vomiting denied any GI bleed. Patient is on iron supplementation and patient's hemoglobin is 13 at this time line supplementation will be discontinued hepatitis panel will be up and patient will need further workup for the cirrhosis because of the acute respiratory discomfort the patient need therapeutic paracentesis since she was never diagnosed with the cirrhosis patient will need diagnostic workup for of the acetic fluid as well. Patient wi ll be started on IV Lasix. Patient does have a bicytopenia consistent with the splenomegaly and cirrhosis. Patient does have peripheral signs of cirrhosis ammonia level will be obtained. Review of Systems REVIEW OF SYSTEMS: CONSTITUTIONAL: No fever, no malaise, no fatigue. HEENT: No recent visual problems or hearing problems. Denied any sore throat. CARDIOVASCULAR: No chest pain, orthopnea, PND, no palpitations, no syncope. PULMONARY: No shortness of breath, no cough, no hemoptysis. GASTROINTESTINAL: No diarrhea, no nausea, no vomiting, no abdominal pain. NEUROLOGICAL: No headaches, no weakness, no numbness. HEMATOLOGICAL: Denies any bleeding or petechiae. GENITOURINARY: Denies any burning micturition, frequency, or urgency. MUSCULOSKELETAL/RHEUMATOLOGICAL: Denies any joint pain, swelling, or any muscle pain. ENDOCRINE: Denies any polyuria or polydipsia. The rest of the 14-point review of systems is negative. Past Medical History Past Medical History: COPD Additional Past Medical History / Comment(s): back pain History of Any Multi-Drug Resistant Organisms: None Reported Past Surgical History: Ear Surgery, Tonsillectomy Past Anesthesia/Blood Transfusion Reactions: No Reported Reaction Past Psychological History: No Psychological Hx Reported Smoking Status: Former smoker Past Alcohol Use History: None Reported Past Drug Use History: None Reported - Past Family History Father History Unknown: Yes Medications and Allergies Home Medications Medication Instructions Recorded Confirmed Type Albuterol Sulfate [Proventil Hfa] 2 puff INHALATION RT-QID PRN 06/11/16 03/11/19 History Budesonide-Formot 160-4.5 Mcg 2 puff INHALATION RT-BID 06/11/16 03/11/19 History [Symbicort 160-4.5 Mcg Inhaler] Atorvastatin [Lipitor] 20 mg PO HS 03/11/19 03/11/19 History Cyanocobalamin (Vitamin B-12) 1,000 mcg PO DAILY 03/11/19 03/11/19 History [Vitamin B-12] Docusate [Colace] 100 mg PO BID PRN 03/11/19 03/11/19 History Ferrous Sulfate [Feosol] 325 mg PO TID 03/11/19 03/11/19 History Tiotropium 18 Mcg/Puff [Spiriva] 1 cap INHALATION RT-DAILY 03/11/19 03/11/19 History Vit C/E/Zn/Coppr/Lutein/Zeaxan 1 cap PO BID 03/11/19 03/11/19 History [Preservision Areds 2 Softgel] metFORMIN HCL [Glucophage] 500 mg PO BID 03/11/19 03/11/19 History Allergies Allergy/AdvReac Type Severity Reaction Status Date / Time Penicillins Allergy Rash/Hives Verified 03/11/19 17:48 Physical Exam Vitals: Vital Signs Temp Pulse Pulse Resp BP BP Pulse Ox 03/11/19 18:09 98.0 F 71 16 130/78 98 03/11/19 17:50 97.6 F 70 22 132/93 97 03/11/19 16:20 72 22 97 03/11/19 15:00 22 03/11/19 14:58 24 03/11/19 13:03 97.4 F L 97 18 139/83 94 L Intake and Output 03/11/19 03/11/19 03/11/19 06:59 14:59 22:59 Output Total 100 Balance -100 Output: Urine 100 Straight 100 Other: Weight 99.79 kg 99.79 kg PHYSICAL EXAMINATION: GENERAL: The patient is alert and oriented x3, not in any acute distress. Well developed, well nourished. HEENT: Pupils are round and equally reacting to light. EOMI. No scleral icterus. No conjunctival pallor. Normocephalic, atraumatic. No pharyngeal erythema. No thyromegaly. CARDIOVASCULAR: S1 and S2 present. No murmurs, rubs, or gallops. PULMONARY: Chest is clear to auscultation, no wheezing or crackles. ABDOMEN: Abdominal distention with fluid shift. Patient does have peripheral signs of cirrhosis including palmar erythema spider anyway, umbilicul hernia patient doesn't have any asterixis MUSCULOSKELETAL: No joint swelling or deformity. EXTREMITIES: No cyanosis, clubbing, or pedal edema. NEUROLOGICAL: Gross neurological examination did not reveal any focal deficits. SKIN: No rashes. Results CBC & Chem 7: 03/11/19 13:53 03/11/19 13:53 Labs: Abnormal Lab Results - Last 24 Hours (Table) 03/11/19 03/11/19 03/11/19 Range/Units 13:53 13:53 17:02 WBC 2.6 L (3.8-10.6) k/uL RBC 4.03 L (4.30-5.90) m/uL Plt Count 65 L (150-450) k/uL Lymphocytes # 0.4 L (1.0-4.8) k/uL Chloride 110 H (98-107) mmol/L Creatinine 0.61 L (0.66-1.25) mg/dL Glucose 103 H (74-99) mg/dL Alkaline Phosphatase 134 H (38-126) U/L Ur Specific [place] >1.050 H (1.001-1.035) Urine Protein Trace H (Negative) Urine Ketones 1+ H (Negative) Thrombosis Risk Factor Assmnt - Choose All That Apply Any of the Below Risk Factors Present?: Yes Each Factor Represents 1 point: Swollen legs (current) Other Risk Factors: Yes Each Risk Factor Represents 3 Points: Age 75 years or older Thrombosis Risk Factor Assessment Total Risk Factor Score: 4 Thrombosis Risk Factor Assessment Level: Moderate Risk Assessment and Plan Plan: -Cirrhosis etiology of cirrhosis is not clear and supplementation of dyspnea patient will need further workup, gastroenterology was consulted will start him on Lasix will check his basic metabolic profile and Metabolic profile tomorrow. On a level CAT scan of the chest abdomen was reviewed and patient does have ascites cirrhosis and splenomegaly. 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
[2019-03-11] MEDS: FUROSEMIDE 10 MG/ML 4 ML VIAL IV SCH (20:01)
[2019-03-11] MEDS: traMADol 50 MG TAB PO PRN (20:02)
[2019-03-11] MEDS: SYMBICORT 160-4.5 MCG INHALER INHALATION SCH (20:08)
[2019-03-11 20:39] LABS: Glucose,Whole Blood 111 mg/dL (75-99)
[2019-03-11] MEDS: INSULIN ASPART (NovoLOG) 100 UNIT/ML VIAL SQ SCH (21:01)
[2019-03-11] MEDS: ATORVASTATIN 20 MG TAB PO SCH (21:01)
[2019-03-11] MEDS ORDERED: FERROUS SULFATE 325 MG TAB PO SCH (22:00)
[2019-03-11 23:48] LABS: Hepatitis A Antibody IgM Non-Reactive (Non-Reactive); Hepatitis B Core IgM Non-Reactive (Non-Reactive); Hepatitis B Surface Antigen Non-Reactive (Non-Reactive); Hepatitis C IgG Antibody Non-Reactive (Non-Reactive)
[2019-03-12] MEDS: HEPARIN SODIUM,PORCINE 5,000 UNIT/ML 1 ML VIAL SQ SCH ×3 (00:29→16:50)
[2019-03-12] MEDS: SYMBICORT 160-4.5 MCG INHALER INHALATION SCH ×2 (07:27→20:23)
[2019-03-12] MEDS: IPRATROPIUM 0.5 MG/2.5 ML NEBU INHALATION SCH ×4 (07:27→20:23)
[2019-03-12] MEDS: INSULIN ASPART (NovoLOG) 100 UNIT/ML VIAL SQ SCH ×4 (07:37→20:47)
[2019-03-12 07:38] LABS: Glucose,Whole Blood 106 mg/dL (75-99)
[2019-03-12] MEDS: CYANOCOBALAMIN 500 MCG TAB PO SCH (08:15)
[2019-03-12] MEDS: FUROSEMIDE 10 MG/ML 4 ML VIAL IV SCH (08:15)
[2019-03-12] MEDS: traMADol 50 MG TAB PO PRN (08:18)
[2019-03-12 09:00] LABS: HCT 37.3 % (39.0-53.0); HGB 11.9 gm/dL (13.0-17.5); Hypochromasia Slight; MCH 32.2 pg (25.0-35.0); MCV 100.4 fL (80.0-100.0); Mean Platelet Volume 8.2; RBC 3.71 m/uL (4.30-5.90); RDW 13.6 % (11.5-15.5)
[2019-03-12 09:02] LABS: INR 1.1 (<1.2); Platelet Count 60 k/uL (150-450); Prothrombin Time 11.5 sec (9.0-12.0)
[2019-03-12 09:17] LABS: ALT 17 U/L (4-49); AST 40 U/L (17-59); African American GFR (CKD) >90 (>60 ml/min/1.73 sqM); Albumin 3.3 g/dL (3.5-5.0); Alkaline Phosphatase 112 U/L (38-126); Anion Gap 6 mmol/L; Blood Urea Nitrogen 14 mg/dL (9-20); Calcium 8.3 mg/dL (8.4-10.2); Carbon Dioxide 29 mmol/L (22-30); Chloride 108 mmol/L (98-107); Glucose 101 mg/dL (74-99); Non-African American GFR(CKD) >90 (>60 ml/min/1.73 sqM); Potassium 3.6 mmol/L (3.5-5.1); Sodium 143 mmol/L (137-145); Total Bilirubin 0.8 mg/dL (0.2-1.3); Total Protein 6.1 g/dL (6.3-8.2)
[2019-03-12 11:34] LABS: Glucose,Whole Blood 125 mg/dL (75-99)
[2019-03-12 15:01] VITALS: BMI 33.4
[2019-03-12 17:21] LABS: Glucose,Whole Blood 120 mg/dL (75-99)
[2019-03-12] MEDS: SODIUM CHLORIDE 0.9% 1,000 ML IV SCH (17:59)
--- NOTE | 2019-03-12 19:17 | PN ---
PROGRESS NOTE DATE OF SERVICE: 03/12/2019 This 78-year-old gentleman admitted with multiple medical problems including cirrhosis of the liver, has significant ascites also. The patient never had an aspiration done before. Abdominal and pelvis CAT scan was done at the time of admission which showed splenomegaly of 20 cm and cirrhosis of the liver and cholelithiasis and 4 quadrant ascites was also noted. PAST MEDICAL HISTORY: Reviewed. REVIEW OF SYSTEMS: CARDIOVASCULAR: No angina. RESPIRATORY: As mentioned earlier. GI: As mentioned earlier. : No dysuria. NERVOUS SYSTEM: No numbness or weakness. CURRENT MEDICATIONS: 1. Ventolin 2.5 q.i.d. p.r.n. 2. Lipitor 20 mg q.h.s. 3. Symbicort 4.5 two puffs b.i.d. 4. Vitamin B12 1000 mcg p.o. daily. 5. Colace 100 mg p.o. b.i.d. 6. Lasix 40 mg b.i.d. 7. Heparin subcu q.8h. 8. NovoLog scale. 9. Atrovent q.i.d. 10.Narcan 0.2 q.2 p.r.n. 11.Zofran. 12.Ultram 50 mg p.o. q.i.d. p.r.n. PHYSICAL EXAMINATION: Patient is alert, oriented x2. Pulse 71, blood pressure 124/70, respirations 16, temperature 97.8, pulse ox 98% on 2 L. HEENT: Conjunctivae normal. Oral mucosa moist. NECK: No jugular venous distention. No lymph node enlargement. CARDIOVASCULAR: S1, S2. RESPIRATORY: Diminished breath sounds at the bases. Bilateral scattered rhonchi and crackles. ABDOMEN: Soft, obese. Ascites present. LEGS: No edema, no swelling. NERVOUS SYSTEM: No focal deficits. LABS: WBC 2, hemoglobin 11 and platelets 16. ASSESSMENT: 1. 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 2. Splenomegaly. 3. Mild pancytopenia possibly secondary to cirrhosis of the liver and splenomegaly. 4. Cholelithiasis in the CT scan. 5. Chronic obstructive pulmonary disease. 6. Hyperlipidemia. 7. Diabetes mellitus type 2. 8. Hypoalbuminemia with mild to moderate malnutrition. 9. History of degenerative joint disease. 10.Remote history of nicotine dependence. 11.NO CODE/NO CPR/NO VENT. RECOMMENDATIONS AND DISCUSSION: In this 78-year-old gentleman with a past medical history of multiple medical problems, we will monitor the patient closely, continue the current management and symptomatic treatment. Otherwise, at this time I recommend a small dose of diuretics with a combination of Lasix and Aldactone. Otherwise, continue the rest of the medications. Subcu heparin. DVT prophylaxis. Cut down the IV fluids. Interventional radiology consultation for possible aspiration. Gastroenterology evaluation. Resume the home medications. Guarded prognosis because of multiple complex medical issues. Further recommendations to follow. We will monitor the blood sugars closely. MMODL / IJN: [id number] /
[2019-03-12 20:26] LABS: Glucose,Whole Blood 111 mg/dL (75-99)
[2019-03-12] MEDS: SPIRONOLACTONE 25 MG TAB PO SCH (20:48)
[2019-03-12] MEDS: ATORVASTATIN 20 MG TAB PO SCH (20:49)
--- NOTE | 2019-03-12 22:51 | P.CONS ---
History of Present Illness - Reason for Consult Consult date: 03/12/19 Decompensated cirrhosis Requesting physician: Kaleb Cortez - Chief Complaint Abdominal pain, distention - History of Present Illness 78-year-old male with a history of COPD and a remote history of alcohol abuse. 40 years ago who presented to the hospital with complaints of abdominal distention and tenderness. The patient reported increasing abdominal swelling and distention increasing over the week prior to his presentation. He denies any prior episodes of similar complaints. No prior paracentesis. He has not had any GI bleeds in the past. Previously he drank approximately 2 fifths of liquor daily over 20 year but reports discontinuing this and tingling this 40 years ago. No known history of liver disease or cirrhosis. On presentation to the hospital laboratory evaluation was significant for a WBC 2, hemoglobin 11.9, platelet count 60,000, INR 1.1, total bilirubin 0.8, alkaline phosphatase 112, AST 40 and ALT 17. Evaluation with computed tomography scan of the abdomen was significant for a cirrhotic-appearing liver with ascites. Viral hepatitis panel was negative. Review of Systems REVIEW OF SYSTEMS: CONSTITUTIONAL: Denies any fevers, chills, weight change or fatigue. CARDIOVASCULAR: Denies any chest pain, palpitations high or low blood pressures RESPIRATORY: Denies any hemoptysis or cough but does report shortness of breath. GENITOURINARY: No dysuria or hematuria. MUSCULOSKELETAL: No weakness reported. SKIN: Denies any new rashes or lesions, jaundice or pallor. PSYCHIATRIC: Denies any depression or anxiety. NEUROLOGY: Denies headache, denies any new focal deficits. EARS/NOSE/THROAT: No recent hearing change, congestion, nasal discharge or sore throat. EYES: No pain in eyes, discharge or change in vision. GASTROINTESTINAL: As per HPI. Past Medical History Past Medical History: COPD Additional Past Medical History / Comment(s): back pain History of Any Multi-Drug Resistant Organisms: None Reported Past Surgical History: Ear Surgery, Tonsillectomy Past Anesthesia/Blood Transfusion Reactions: No Reported Reaction Past Psychological History: No Psychological Hx Reported Smoking Status: Former smoker Past Alcohol Use History: None Reported Past Drug Use History: None Reported - Past Family History Father History Unknown: Yes Medications and Allergies Home Medications Medication Instructions Recorded Confirmed Type Albuterol Sulfate [Proventil Hfa] 2 puff INHALATION RT-QID PRN 06/11/16 03/11/19 History Budesonide-Formot 160-4.5 Mcg 2 puff INHALATION RT-BID 06/11/16 03/11/19 History [Symbicort 160-4.5 Mcg Inhaler] Atorvastatin [Lipitor] 20 mg PO HS 03/11/19 03/11/19 History Cyanocobalamin (Vitamin B-12) 1,000 mcg PO DAILY 03/11/19 03/11/19 History [Vitamin B-12] Docusate [Colace] 100 mg PO BID PRN 03/11/19 03/11/19 History Ferrous Sulfate [Feosol] 325 mg PO TID 03/11/19 03/11/19 History Tiotropium 18 Mcg/Puff [Spiriva] 1 cap INHALATION RT-DAILY 03/11/19 03/11/19 History Vit C/E/Zn/Coppr/Lutein/Zeaxan 1 cap PO BID 03/11/19 03/11/19 History [Preservision Areds 2 Softgel] metFORMIN HCL [Glucophage] 500 mg PO BID 03/11/19 03/11/19 History Allergies Allergy/AdvReac Type Severity Reaction Status Date / Time Penicillins Allergy Rash/Hives Verified 03/11/19 17:48 Physical Exam Vitals: Vital Signs Temp Pulse Pulse Resp BP BP Pulse Ox 03/12/19 11:45 97.8 F 71 16 124/74 90 L 03/12/19 11:17 76 03/12/19 11:07 76 03/12/19 08:18 18 03/12/19 07:42 72 03/12/19 07:28 72 03/12/19 05:00 98.1 F 75 20 114/76 97 03/11/19 21:00 98.0 F 81 18 123/79 96 03/11/19 20:14 97 03/11/19 20:00 81 03/11/19 18:09 98.0 F 71 16 130/78 98 03/11/19 17:50 97.6 F 70 22 132/93 97 03/11/19 16:20 72 22 97 03/11/19 15:00 22 03/11/19 14:58 24 Intake and Output 03/11/19 03/12/19 03/12/19 22:59 06:59 14:59 Intake Total 500 500 Output Total 1350 2100 1000 Balance -850 -1600 -1000 Intake: Oral 500 500 Output: Urine 1350 2100 1000 Straight 100 Other: Voiding Method Urinal Toilet Urinal # Voids 3 # Bowel Movements 1 Weight 99.79 kg On physical examination, patient appears comfortable in no apparent distress. HEAD: Normocephalic, atraumatic. EYES: No scleral icterus. No conjunctival injection. MOUTH: No lesions, tongue midline. NECK: Trachea midline, no gross abnormalities. CHEST: Clear to auscultation with no wheezing or rhonchi appreciated. HEART: Regular rate and rhythm. ABDOMEN: Soft, distended with positive fluid. Bowel sounds are positive. No organomegaly. No guarding or rigidity. EXTREMITIES: Bilateral pedal edema. SKIN: No rashes, no jaundice. NEUROLOGIC: Alert and oriented x3, no asterixis noted. No focal deficits. Results CBC & Chem 7: 03/12/19 07:53 03/12/19 07:53 Labs: Abnormal Lab Results - Last 24 Hours (Table) 03/11/19 03/11/19 03/12/19 Range/Units 17:02 20:29 07:37 WBC (3.8-10.6) k/uL RBC (4.30-5.90) m/uL Hgb (13.0-17.5) gm/dL Hct (39.0-53.0) % MCV (80.0-100.0) fL Plt Count (150-450) k/uL Chloride (98-107) mmol/L Creatinine (0.66-1.25) mg/dL Glucose (74-99) mg/dL POC Glucose (mg/dL) 111 H 106 H (75-99) mg/dL Calcium (8.4-10.2) mg/dL Total Protein (6.3-8.2) g/dL Albumin (3.5-5.0) g/dL Ur Specific [place] >1.050 H (1.001-1.035) Urine Protein Trace H (Negative) Urine Ketones 1+ H (Negative) 03/12/19 03/12/19 03/12/19 Range/Units 07:53 07:53 11:28 WBC 2.0 L (3.8-10.6) k/uL RBC 3.71 L (4.30-5.90) m/uL Hgb 11.9 L (13.0-17.5) gm/dL Hct 37.3 L (39.0-53.0) % MCV 100.4 H (80.0-100.0) fL Plt Count 60 L (150-450) k/uL Chloride 108 H (98-107) mmol/L Creatinine 0.65 L (0.66-1.25) mg/dL Glucose 101 H (74-99) mg/dL POC Glucose (mg/dL) 125 H (75-99) mg/dL Calcium 8.3 L (8.4-10.2) mg/dL Total Protein 6.1 L (6.3-8.2) g/dL Albumin 3.3 L (3.5-5.0) g/dL Ur Specific [place] (1.001-1.035) Urine Protein (Negative) Urine Ketones (Negative) CT scan - abdomen: report reviewed (Computed tomography scan of the abdomen with findings of a cirrhotic-appearing liver with a ascites) Assessment and Plan (1) Cirrhosis Narrative/Plan: 78-year-old male with medical history significant for COPD presenting with complaints of abdominal distention found to have evidence of a site isn't cirrhosis on computed tomography scan of the abdomen. No prior history of cirrhosis, liver disease, GI bleed or encephalopathy. The patient did have a history of alcohol abuse remotely but is currently abstinent. Viral hepatitis panel testing negative. Current Visit: Yes Status: Acute Code(s): K74.60 - UNSPECIFIED CIRRHOSIS OF LIVER SNOMED Code(s): 65851222 (2) Abdominal distention Current Visit: Yes Status: Acute Code(s): R14.0 - ABDOMINAL DISTENSION (GASEOUS) SNOMED Code(s): 14043662 (3) Ascites Current Visit: Yes Status: Acute Code(s): R18.8 - OTHER ASCITES SNOMED Code(s): 977180364 Plan: Supportive care Diet changed to sodium restricted INR consult for paracentesis Fluid studies added to confirm etiology of ascites Continue Lasix 40 mg IV twice a day Continue Aldactone 50 mg twice a day Continue to monitor CBC, CMP AFP ordered Thank you for allowing us to participate in the care of the patient, we will continue to follow
[2019-03-13] MEDS: HEPARIN SODIUM,PORCINE 5,000 UNIT/ML 1 ML VIAL SQ SCH ×3 (00:05→16:57)
[2019-03-13] MEDS: SYMBICORT 160-4.5 MCG INHALER INHALATION SCH ×2 (06:58→22:02)
[2019-03-13] MEDS: IPRATROPIUM 0.5 MG/2.5 ML NEBU INHALATION SCH ×4 (06:58→22:02)
[2019-03-13 07:06] LABS: Glucose,Whole Blood 108 mg/dL (75-99)
[2019-03-13] MEDS: INSULIN ASPART (NovoLOG) 100 UNIT/ML VIAL SQ SCH ×4 (07:31→22:03)
[2019-03-13] MEDS: FUROSEMIDE 40 MG TAB PO SCH ×2 (08:01→16:57)
[2019-03-13] MEDS: CYANOCOBALAMIN 500 MCG TAB PO SCH (08:01)
[2019-03-13] MEDS: SPIRONOLACTONE 25 MG TAB PO SCH ×2 (08:01→22:04)
[2019-03-13 09:14] LABS: Basophils % (A) 0 %; Eosinophils # (A) 0.1 k/uL (0-0.7); Eosinophils % (A) 3 %; HCT 37.1 % (39.0-53.0); HGB 12.2 gm/dL (13.0-17.5); Lymphocytes # (A) 0.6 k/uL (1.0-4.8); Lymphocytes % (A) 25 %; MCH 32.7 pg (25.0-35.0); MCHC 32.8 g/dL (31.0-37.0); MCV 99.5 fL (80.0-100.0); Mean Platelet Volume 7.8; Monocytes # (A) 0.2 k/uL (0-1.0); Monocytes % (A) 7 %; Neutrophils # (A) 1.4 k/uL (1.3-7.7); Neutrophils % (A) 64 %; RBC 3.73 m/uL (4.30-5.90); RDW 13.6 % (11.5-15.5); WBC 2.3 k/uL (3.8-10.6)
[2019-03-13 09:16] LABS: Platelet Count 71 k/uL (150-450)
[2019-03-13 09:24] LABS: African American GFR (CKD) >90 (>60 ml/min/1.73 sqM); Anion Gap 3 mmol/L; Blood Urea Nitrogen 12 mg/dL (9-20); Calcium 8.4 mg/dL (8.4-10.2); Carbon Dioxide 34 mmol/L (22-30); Chloride 103 mmol/L (98-107); Glucose 129 mg/dL (74-99); Non-African American GFR(CKD) >90 (>60 ml/min/1.73 sqM); Potassium 3.7 mmol/L (3.5-5.1); Sodium 140 mmol/L (137-145)
[2019-03-13 12:06] LABS: Glucose,Whole Blood 114 mg/dL (75-99)
[2019-03-13 17:14] LABS: Glucose,Whole Blood 98 mg/dL (75-99)
[2019-03-13] MEDS: SODIUM CHLORIDE 0.9% 1,000 ML IV SCH (17:50)
--- NOTE | 2019-03-13 19:02 | PN ---
PROGRESS NOTE DATE OF SERVICE: 03/13/2019. This 78-year-old gentleman with a past medical history of multiple medical problems was admitted with cirrhosis of liver with significant intractable ascites. The patient also has splenomegaly also. Ascitic tap is being planned for tomorrow. The patient also had pancytopenia possibly secondary to ascites. Gastroenterology, Dr. Higgins has seen the patient. Abdomen and pelvis CAT scan was reviewed. Dr. Higgins has recommended continue the diuretics which has been initiated at this time. PAST MEDICAL HISTORY: Reviewed. REVIEW OF SYSTEMS: Cardiovascular system: No angina or palpitations. RESPIRATORY: As mentioned earlier. GASTROINTESTINAL: As mentioned earlier. : No dysuria. CENTRAL NERVOUS SYSTEM: No focal deficits. CURRENT MEDICATIONS: Reviewed and include: 1. Ventolin 2.5 q.i.d. p.r.n. 2. Lipitor 20 mg. 3. Symbicort 160/4.5 two puffs b.i.d. 4. Vitamin B12 1000 mg. 5. Colace 100 mg p.o. b.i.d. 6. Lasix 40 mg p.o. b.i.d. 7. Heparin. 8. NovoLog. 9. Atrovent. 10.Narcan. 11.Zofran. 12.Aldactone 50 mg p.o. daily. 13.Ultram 50 mg p.o. b.i.d. p.r.n. PHYSICAL EXAMINATION: Patient is alert, oriented x3. Pulse 74. Blood pressure 112/60, respirations 16, temperature 98.8, pulse ox 94% on 2 L. HEENT: Conjunctivae normal. NECK: No JVD. CARDIOVASCULAR: S1, S2 muffled. RESPIRATORY: Breath sounds diminished in the bases. A few scattered rhonchi and crackles. ABDOMEN: Soft, obese, ascites present. LEGS: No edema. No swelling. Nervous System: No focal deficits. LAB STUDIES: WBC 2.3, hemoglobin 12.2, platelets 71. Sodium 140, potassium 3.7, and glucose 129. ASSESSMENT: 1. 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 2. Splenomegaly. 3. On diuretics. 4. Mild pancytopenia possibly secondary to cirrhosis of the liver and splenomegaly. 5. Cholelithiasis on CT scan. 6. Chronic obstructive pulmonary disease. 7. Hyperlipidemia. 8. Diabetes mellitus type 2. 9. Hypoalbuminemia with mild to moderate malnutrition. 10.History of degenerative joint disease. 11.Remote history of nicotine dependence. 12.NO CODE, NO CPR, NO VENT. RECOMMENDATIONS AND DISCUSSION: In this 78-year-old gentleman who presented with multiple complex medical issues, at this time, I recommend to continue the current medications, management and symptomatic treatment. The BUN is 34 today. We will monitor the BUN and creatinine closely. Continue the current medication. Monitor potassium closely. Otherwise PT/INR is normal. I will recommend Interventional Radiology to proceed with ascitic fluid aspiration and further studies on the fluid including cytology and culture also. Otherwise, continue rest of medications. Discussed with the patient. Prognosis guarded. Further recommendations to follow. Discussed with the patient and family. ZEB / IJN: [id number] /
[2019-03-13 21:13] LABS: Glucose,Whole Blood 116 mg/dL (75-99)
[2019-03-13] MEDS: ATORVASTATIN 20 MG TAB PO SCH (22:04)
[2019-03-14] MEDS: HEPARIN SODIUM,PORCINE 5,000 UNIT/ML 1 ML VIAL SQ SCH ×3 (00:03→17:28)
[2019-03-14 07:33] LABS: Glucose,Whole Blood 106 mg/dL (75-99)
[2019-03-14] MEDS: INSULIN ASPART (NovoLOG) 100 UNIT/ML VIAL SQ SCH ×3 (07:49→17:28)
[2019-03-14] MEDS: SYMBICORT 160-4.5 MCG INHALER INHALATION SCH (07:54)
[2019-03-14] MEDS: IPRATROPIUM 0.5 MG/2.5 ML NEBU INHALATION SCH ×3 (07:54→15:25)
[2019-03-14] MEDS: CYANOCOBALAMIN 500 MCG TAB PO SCH (09:05)
[2019-03-14] MEDS: SPIRONOLACTONE 25 MG TAB PO SCH (09:05)
[2019-03-14] MEDS: FUROSEMIDE 40 MG TAB PO SCH ×3 (09:05→17:29)
[2019-03-14 09:27] LABS: INR 1.1 (<1.2); Prothrombin Time 11.4 sec (9.0-12.0)
[2019-03-14 09:30] LABS: Basophils % (A) 0 %; Eosinophils # (A) 0.1 k/uL (0-0.7); Eosinophils % (A) 3 %; HCT 35.9 % (39.0-53.0); HGB 11.9 gm/dL (13.0-17.5); Lymphocytes # (A) 0.4 k/uL (1.0-4.8); Lymphocytes % (A) 21 %; MCH 32.7 pg (25.0-35.0); MCHC 33.2 g/dL (31.0-37.0); MCV 98.6 fL (80.0-100.0); Mean Platelet Volume 8.4; Monocytes # (A) 0.1 k/uL (0-1.0); Monocytes % (A) 8 %; Neutrophils # (A) 1.2 k/uL (1.3-7.7); Neutrophils % (A) 66 %; RBC 3.64 m/uL (4.30-5.90); RDW 13.6 % (11.5-15.5); WBC 1.8 k/uL (3.8-10.6)
[2019-03-14 09:31] LABS: African American GFR (CKD) >90 (>60 ml/min/1.73 sqM); Anion Gap 4 mmol/L; Blood Urea Nitrogen 11 mg/dL (9-20); Calcium 8.5 mg/dL (8.4-10.2); Carbon Dioxide 35 mmol/L (22-30); Chloride 102 mmol/L (98-107); Glucose 186 mg/dL (74-99); Non-African American GFR(CKD) 88 (>60 ml/min/1.73 sqM); Potassium 3.7 mmol/L (3.5-5.1); Sodium 141 mmol/L (137-145)
[2019-03-14 09:32] LABS: Platelet Count 67 k/uL (150-450)
[2019-03-14 12:03] LABS: Glucose,Whole Blood 103 mg/dL (75-99)
[2019-03-14 16:17] VITALS: RESP 16
[2019-03-14 17:27] LABS: Glucose,Whole Blood 106 mg/dL (75-99)
[2019-03-14 17:41] VITALS: TEMP 98
[2019-03-14 17:55] VITALS: BP 105/59; PULSE 86
[2019-03-14 20:32] LABS: Appearance,BF Blood Tinged; Color,BF Pink; Nucleated Cells, Body Fluid 2167 /uL; RBC, Body Fluid 55167 /uL
[2019-03-14 20:36] LABS: Mononuclear WBC,Body Fluid 99 %; Polynuclear WBC,Body Fluid 1 %; Total Cells Counted,Body Fluid 100
[2019-03-15 01:49] LABS: Albumin, Fluid Source Ascites; Total Protein, Body Fluid 1539 mg/dL
--- NOTE | 2019-03-15 08:06 | DS ---
DISCHARGE SUMMARY DATE OF SERVICE: 03/14/2019 FINAL DIAGNOSES: 1. 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 2. Splenomegaly. 3. On diuretics. 4. Mild pancytopenia possibly secondary to cirrhosis of the liver and splenomegaly. 5. Cholelithiasis on the CT scan. 6. Chronic obstructive pulmonary disease. 7. Hyperlipidemia. 8. Diabetes mellitus type 2. 9. Hypoalbuminemia. 10.History of degenerative joint disease. 11.Remote history of nicotine dependence. 12.NO CODE, NO CPR, NO VENT. DISCHARGE DISPOSITION: The patient will be discharged in stable condition with guarded prognosis. HISTORY OF PRESENT ILLNESS: This 78-year-old gentleman presented with multiple medical problems and was admitted with cirrhosis of the liver with intractable ascites. The patient underwent a paracentesis. Reports are not available at this time. Patient improved significantly. The patient will be discharged in stable condition with guarded prognosis. On exam, vitals are stable. CARDIOVASCULAR: S1, S2 muffled. ABDOMEN: Soft, nontender. NERVOUS SYSTEM: No focal deficits. DISCHARGE ADVICE: 1. Diet is cardiac. 2. Activity limited until followup. 3. Follow up with [facility] and Dr. Orellana in 2 to 3 days. 4. Follow up with Gastroenterology as recommended. Medications are: 1. Colace 100 mg p.o. b.i.d. 2. Glucophage 500 mg p.o. b.i.d. 3. Lipitor 20 mg at bedtime. 4. Vitamins 1 p.o. b.i.d. 5. Albuterol p.r.n. 6. Spiriva 1 puff daily. 7. Symbicort 160/4.5 two puffs b.i.d. 8. Vitamin B12, 1000 mcg p.o. daily. 9. Aldactone 50 mg p.o. b.i.d. 10.Iron sulfate 325 mg daily. 11.Lasix 40 mg p.o. b.i.d. Close followup with CBC, BMP in the outpatient setting. MMODL / IJN: [id number] /
--- NOTE | 2019-03-15 08:30 | US ---
Therapeutic paracentesis. DATE OF EXAM: 03/14/2019 CLINICAL HISTORY: Ascites The procedure was discussed with the patient. The risks, complications, benefits, and alternatives we re discussed and any questions were answered. Informed consent was obtained. The patient was placed s upine on the ultrasound table and prepped and draped in the usual sterile fashion. All elements of maximal barrier technique were utilized. Under ultrasound guidance, access into the right lower quadrant was obtained, via the paracentesis catheter system and direct ultrasound guidanc e. Approximately 5.5 liters of straw-colored fluid was removed. The patient was stable throughout the pr ocedure and remained stable upon discharge from Department of Radiology. IMPRESSION: Successful therapeutic paracentesis under ultrasound guidance.
== END 2019-03-14 18:13 | disposition home or self-care (01) | DRG 433 ==
LOC: EC 12:53 → 6NMEDSUR 16:43
PROVIDERS: ADMIT Internal Medicine; ATTEND Internal Medicine
PROC: 0W9G3ZZ Drainage of Peritoneal Cavity, Percutaneous Approach (ICD-10-PCS; principal; 2019-03-14)
DX: K74.60 Unspecified cirrhosis of liver (principal); D61.818 Other pancytopenia; E44.0 Moderate protein-calorie malnutrition; K76.6 Portal hypertension; R18.8 Other ascites; E11.9 Type 2 diabetes mellitus without complications; Z66 Do not resuscitate; E78.5 Hyperlipidemia, unspecified; J44.9 Chronic obstructive pulmonary disease, unspecified; M19.90 Unspecified osteoarthritis, unspecified site; K80.20 Calculus of gallbladder without cholecystitis without obstruction; Z79.84 Long term (current) use of oral hypoglycemic drugs; Z79.51 Long term (current) use of inhaled steroids; Z79.899 Other long term (current) drug therapy; Z87.891 Personal history of nicotine dependence; Z90.89 Acquired absence of other organs; Z98.890 Other specified postprocedural states; Z88.0 Allergy status to penicillin
CPT/HCPCS: 36415; 49083; 51701; 71046; 74177; 80048; 80053; 80074; 81003; 82042; 82105; 82150; 83605; 83690; 83880; 84157; 85025; 85027; 85610; 88108; 88305; 89050; 94640; 94760; 99285

== ENCOUNTER 2021-09-03 13:57 | Emergency (ER) | payer OTHER, MEDICARE ==
[2021-09-03 14:32] VITALS: RESP 20; TEMP 98.1
[2021-09-03] MEDS ORDERED: MAGNESIUM SULFATE-D5W PMX 1 GM in DEXTROSE/WATER 1 100ML.BAG IVPB STA (15:03)
[2021-09-03] MEDS ORDERED: ALBUTEROL NEBULIZED 2.5 MG/3 ML INHALATION STA (15:03)
[2021-09-03] MEDS ORDERED: IPRATROPIUM 0.5 MG/2.5 ML NEBU INHALATION STA (15:03)
[2021-09-03] MEDS ORDERED: methylPREDNISolone SOD SUCCI 125 MG/2 ML VIAL IV STA (15:03)
[2021-09-03 15:30] LABS: ABG Base Excess 1.1 mmol/L; ABG HCO3 25 mmol/L (21-25); ABG Oxygen Saturation 98.2 % (94-97); ABG PCO2 38 mmHg (35-45); ABG PH 7.43 (7.35-7.45); ABG PO2 87 mmHg (83-108); ABG TCO2 27 mmol/L (19-24); Allen Test Performed? Yes
--- NOTE | 2021-09-03 15:35 | XR ---
EXAMINATION TYPE: XR chest 1V portable DATE OF EXAM: 09/03/2021 COMPARISON: 03/11/2019 HISTORY: Shortness of breath TECHNIQUE: Single frontal view of the chest is obtained. FINDINGS: There is no focal air space opacity, pleural effusion, or pneumothorax seen. The cardiac silhouette size is within normal limits. The osseous structures are intact. Atherosclerotic change of the aorta. Coarsened interstitium. IMPRESSION: Correlate for bronchitis or mild interstitial pneumonitis. Chronic interstitial lung dis ease in the differential diagnosis..
[2021-09-03 15:39] LABS: Basophils % (A) 1 %; Eosinophils # (A) 0.1 k/uL (0-0.7); Eosinophils % (A) 3 %; HGB 8.6 gm/dL (13.0-17.5); Hypochromasia Marked; Lymphocytes # (A) 0.4 k/uL (1.0-4.8); Lymphocytes % (A) 21 %; MCH 30.8 pg (25.0-35.0); MCHC 31.9 g/dL (31.0-37.0); MCV 96.5 fL (80.0-100.0); Mean Platelet Volume 9.4; Monocytes # (A) 0.2 k/uL (0-1.0); Monocytes % (A) 8 %; Neutrophils # (A) 1.3 k/uL (1.3-7.7); Neutrophils % (A) 65 %; Poikilocytosis Slight; RBC 2.79 m/uL (4.30-5.90); RDW 13.9 % (11.5-15.5)
[2021-09-03 15:46] LABS: ALT 22 U/L (4-49); AST 33 U/L (17-59); African American GFR (CKD) >90 (>60 ml/min/1.73 sqM); Albumin 3.5 g/dL (3.5-5.0); Alkaline Phosphatase 99 U/L (38-126); Anion Gap 4 mmol/L; Blood Urea Nitrogen 18 mg/dL (9-20); Calcium 8.1 mg/dL (8.4-10.2); Carbon Dioxide 25 mmol/L (22-30); Chloride 108 mmol/L (98-107); Glucose 105 mg/dL (74-99); Magnesium 2.1 mg/dL (1.6-2.3); Non-African American GFR(CKD) 81 (>60 ml/min/1.73 sqM); Potassium 3.8 mmol/L (3.5-5.1); Sodium 137 mmol/L (137-145); Total Bilirubin 0.3 mg/dL (0.2-1.3); Total Protein 5.8 g/dL (6.3-8.2)
[2021-09-03 15:47] LABS: Partial Thromboplastin Time 22.3 sec (22.0-30.0); Prothrombin Time 11.2 sec (9.0-12.0)
[2021-09-03 15:56] VITALS: PULSE 64
[2021-09-03 16:29] LABS: Platelet Count 69 k/uL (150-450)
[2021-09-03 16:31] LABS: Ovalocytes Present
[2021-09-03] MEDS ORDERED: IPRATROPIUM-ALBUTEROL 3 ML NEB INHALATION STA (16:49)
--- NOTE | 2021-09-03 17:33 | ED ---
SOB HPI - General Chief Complaint: Shortness of Breath Stated Complaint: SOB Time Seen by Provider: 09/03/21 14:54 Source: patient, family Mode of arrival: ambulatory Limitations: no limitations - History of Present Illness Initial Comments: Patient complains of shortness of breath. This has been going on for couple days. He has a history of asthma and COPD. He has no chest pain or pressure or tightness. He has no nausea or vomiting. He has no swelling the legs. He has no lightheadedness or dizziness. His symptoms did not resolve with home med ication use. He denies sick contacts. He hasn't traveled anywhere. - Related Data Home Medications Medication Instructions Recorded Confirmed Albuterol Sulfate [Proventil Hfa] 2 puff INHALATION RT-QID PRN 06/11/16 03/11/19 Budesonide-Formot 160-4.5 Mcg 2 puff INHALATION RT-BID 06/11/16 03/11/19 [Symbicort 160-4.5 Mcg Inhaler] Atorvastatin [Lipitor] 20 mg PO HS 03/11/19 03/11/19 Cyanocobalamin (Vitamin B-12) 1,000 mcg PO DAILY 03/11/19 03/11/19 [Vitamin B-12] Docusate [Colace] 100 mg PO BID PRN 03/11/19 03/11/19 Tiotropium 18 Mcg/Puff [Spiriva] 1 cap INHALATION RT-DAILY 03/11/19 03/11/19 Vit C/E/Zn/Coppr/Lutein/Zeaxan 1 cap PO BID 03/11/19 03/11/19 [Preservision Areds 2 Softgel] metFORMIN HCL [Glucophage] 500 mg PO BID 03/11/19 03/11/19 Sodium Chloride [[place]] 1 spray EA NOSTRIL DAILY 03/14/19 03/14/19 Previous Rx's Medication Instructions Recorded Ferrous Sulfate [Iron (65 MG 325 mg PO DAILY #1 03/14/19 Elemental)] Furosemide [Lasix] 40 mg PO BID@0900,1600 #60 tab 03/14/19 Spironolactone [Aldactone] 50 mg PO BID #60 tab 03/14/19 Doxycycline [Vibramycin] 100 mg PO BID #20 cap 09/03/21 predniSONE 50 mg PO DAILY #3 tablet 09/03/21 Allergies Allergy/AdvReac Type Severity Reaction Status Date / Time Penicillins Allergy Rash/Hives Verified 09/03/21 14:32 Review of Systems ROS Statement: Those systems with pertinent positive or pertinent negative responses have been documented in the HPI. ROS Other: All systems not noted in ROS Statement are negative. Past Medical History Past Medical History: COPD Additional Past Medical History / Comment(s): back pain History of Any Multi-Drug Resistant Organisms: None Reported Past Surgical History: Ear Surgery, Tonsillectomy Past Anesthesia/Blood Transfusion Reactions: No Reported Reaction Past Psychological History: No Psychological Hx Reported Smoking Status: Former smoker Past Alcohol Use History: None Reported Past Drug Use History: None Reported - Past Family History Father History Unknown: Yes General Exam Limitations: no limitations General appearance: alert, in no apparent distress Head exam: Present: atraumatic, normocephalic, normal inspection Eye exam: Present: normal appearance, PERRL, EOMI. Absent: scleral icterus, conjunctival injection, periorbital swelling ENT exam: Present: normal exam, mucous membranes moist Neck exam: Present: normal inspection. Absent: tenderness, meningismus, lymphadenopathy Respiratory exam: Present: normal lung sounds bilaterally, respiratory distress, wheezes. Absent: rales, rhonchi, stridor Cardiovascular Exam: Present: regular rate, normal rhythm, normal heart sounds. Absent: systolic murmur, diastolic murmur, rubs, gallop, clicks GI/Abdominal exam: Present: soft, normal bowel sounds. Absent: distended, tenderness, guarding, rebound, rigid Extremities exam: Present: normal inspection, full ROM, normal capillary refill. Absent: tenderness, pedal edema, joint swelling, calf tenderness Back exam: Present: normal inspection Neurological exam: Present: alert, oriented X3, CN II-XII intact Psychiatric exam: Present: normal affect, normal mood Skin exam: Present: warm, dry, intact, normal color. Absent: rash Course Vital Signs 09/03/21 09/03/21 09/03/21 14:29 14:32 15:00 Temperature 98.1 F Pulse Rate 66 61 Respiratory 20 20 22 Rate Blood Pressure 105/58 O2 Sat by Pulse 97 99 Oximetry 09/03/21 09/03/21 09/03/21 15:32 15:44 15:55 Temperature Pulse Rate 66 63 64 Respiratory 20 Rate Blood Pressure 115/70 O2 Sat by Pulse 98 Oximetry Medical Decision Making - Medical Decision Making Patient presents with shortness of breath. He is wheezing initially. He is given breathing treatments. He is given steroids IV. On reevaluation he is feeling better. His labs are normal. His chest x-rays unremarkable. He is stable for discharge. - Lab Data Result diagrams: 09/03/21 15:12 09/03/21 15:12 Lab Results 09/03/21 09/03/21 09/03/21 Range/Units 15:12 15:12 15:12 WBC 2.0 L (3.8-10.6) k/uL RBC 2.79 L (4.30-5.90) m/uL Hgb 8.6 L (13.0-17.5) gm/dL Hct 27.0 L (39.0-53.0) % MCV 96.5 (80.0-100.0) fL MCH 30.8 (25.0-35.0) pg MCHC 31.9 (31.0-37.0) g/dL RDW 13.9 (11.5-15.5) % Plt Count 69 L (150-450) k/uL MPV 9.4 Neutrophils % 65 % Lymphocytes % 21 % Monocytes % 8 % Eosinophils % 3 % Basophils % 1 % Neutrophils # 1.3 (1.3-7.7) k/uL Lymphocytes # 0.4 L (1.0-4.8) k/uL Monocytes # 0.2 (0-1.0) k/uL Eosinophils # 0.1 (0-0.7) k/uL Basophils # 0.0 (0-0.2) k/uL Manual Slide Review Performed Hypochromasia Marked Poikilocytosis Slight Ovalocytes Present PT 11.2 (9.0-12.0) sec INR 1.0 (<1.2) APTT 22.3 (22.0-30.0) sec Sample Site ABG pH (7.35-7.45) ABG pCO2 (35-45) mmHg ABG pO2 (83-108) mmHg ABG HCO3 (21-25) mmol/L ABG Total CO2 (19-24) mmol/L ABG O2 Saturation (94-97) % ABG Base Excess mmol/L William Test FiO2 % Sodium 137 (137-145) mmol/L Potassium 3.8 (3.5-5.1) mmol/L Chloride 108 H (98-107) mmol/L Carbon Dioxide 25 (22-30) mmol/L Anion Gap 4 mmol/L BUN 18 (9-20) mg/dL Creatinine 0.88 (0.66-1.25) mg/dL Est GFR (CKD-EPI)AfAm >90 (>60 ml/min/1.73 sqM) Est GFR (CKD-EPI)NonAf 81 (>60 ml/min/1.73 sqM) Glucose 105 H (74-99) mg/dL Plasma Lactic Acid [place] (0.7-2.0) mmol/L Calcium 8.1 L (8.4-10.2) mg/dL Magnesium 2.1 (1.6-2.3) mg/dL Total Bilirubin 0.3 (0.2-1.3) mg/dL AST 33 (17-59) U/L ALT 22 (4-49) U/L Alkaline Phosphatase 99 (38-126) U/L Troponin I (0.000-0.034) ng/mL NT-Pro-B Natriuret Pep pg/mL Total Protein 5.8 L (6.3-8.2) g/dL Albumin 3.5 (3.5-5.0) g/dL 09/03/21 09/03/21 09/03/21 Range/Units 15:12 15:12 15:12 WBC (3.8-10.6) k/uL RBC (4.30-5.90) m/uL Hgb (13.0-17.5) gm/dL Hct (39.0-53.0) % MCV (80.0-100.0) fL MCH (25.0-35.0) pg MCHC (31.0-37.0) g/dL RDW (11.5-15.5) % Plt Count (150-450) k/uL MPV Neutrophils % % Lymphocytes % % Monocytes % % Eosinophils % % Basophils % % Neutrophils # (1.3-7.7) k/uL Lymphocytes # (1.0-4.8) k/uL Monocytes # (0-1.0) k/uL Eosinophils # (0-0.7) k/uL Basophils # (0-0.2) k/uL Manual Slide Review Hypochromasia Poikilocytosis Ovalocytes PT (9.0-12.0) sec INR (<1.2) APTT (22.0-30.0) sec Sample Site ABG pH (7.35-7.45) ABG pCO2 (35-45) mmHg ABG pO2 (83-108) mmHg ABG HCO3 (21-25) mmol/L ABG Total CO2 (19-24) mmol/L ABG O2 Saturation (94-97) % ABG Base Excess mmol/L William Test FiO2 % Sodium (137-145) mmol/L Potassium (3.5-5.1) mmol/L Chloride (98-107) mmol/L Carbon Dioxide (22-30) mmol/L Anion Gap mmol/L BUN (9-20) mg/dL Creatinine (0.66-1.25) mg/dL Est GFR (CKD-EPI)AfAm (>60 ml/min/1.73 sqM) Est GFR (CKD-EPI)NonAf (>60 ml/min/1.73 sqM) Glucose (74-99) mg/dL Plasma Lactic Acid [place] 1.3 (0.7-2.0) mmol/L Calcium (8.4-10.2) mg/dL Magnesium (1.6-2.3) mg/dL Total Bilirubin (0.2-1.3) mg/dL AST (17-59) U/L ALT (4-49) U/L Alkaline Phosphatase (38-126) U/L Troponin I <0.012 (0.000-0.034) ng/mL NT-Pro-B Natriuret Pep 232 pg/mL Total Protein (6.3-8.2) g/dL Albumin (3.5-5.0) g/dL 09/03/21 Range/Units 15:23 WBC (3.8-10.6) k/uL RBC (4.30-5.90) m/uL Hgb (13.0-17.5) gm/dL Hct (39.0-53.0) % MCV (80.0-100.0) fL MCH (25.0-35.0) pg MCHC (31.0-37.0) g/dL RDW (11.5-15.5) % Plt Count (150-450) k/uL MPV Neutrophils % % Lymphocytes % % Monocytes % % Eosinophils % % Basophils % % Neutrophils # (1.3-7.7) k/uL Lymphocytes # (1.0-4.8) k/uL Monocytes # (0-1.0) k/uL Eosinophils # (0-0.7) k/uL Basophils # (0-0.2) k/uL Manual Slide Review Hypochromasia Poikilocytosis Ovalocytes PT (9.0-12.0) sec INR (<1.2) APTT (22.0-30.0) sec Sample Site r radial ABG pH 7.43 (7.35-7.45) ABG pCO2 38 (35-45) mmHg ABG pO2 87 (83-108) mmHg ABG HCO3 25 (21-25) mmol/L ABG Total CO2 27 H (19-24) mmol/L ABG O2 Saturation 98.2 H (94-97) % ABG Base Excess 1.1 mmol/L William Test Yes FiO2 21 % Sodium (137-145) mmol/L Potassium (3.5-5.1) mmol/L Chloride (98-107) mmol/L Carbon Dioxide (22-30) mmol/L Anion Gap mmol/L BUN (9-20) mg/dL Creatinine (0.66-1.25) mg/dL Est GFR (CKD-EPI)AfAm (>60 ml/min/1.73 sqM) Est GFR (CKD-EPI)NonAf (>60 ml/min/1.73 sqM) Glucose (74-99) mg/dL Plasma Lactic Acid [place] (0.7-2.0) mmol/L Calcium (8.4-10.2) mg/dL Magnesium (1.6-2.3) mg/dL Total Bilirubin (0.2-1.3) mg/dL AST (17-59) U/L ALT (4-49) U/L Alkaline Phosphatase (38-126) U/L Troponin I (0.000-0.034) ng/mL NT-Pro-B Natriuret Pep pg/mL Total Protein (6.3-8.2) g/dL Albumin (3.5-5.0) g/dL Twelve-lead EKG shows ventricular rate 62 bpm, normal [place] interval and QRS complexes, no ST elevation or depression, interpreted by me as normal sinus rhythm. 09/03/21 17:31 Disposition Clinical Impression: COPD (chronic obstructive pulmonary disease) Disposition: HOME SELF-CARE Condition: Good Instructions (If sedation given, give patient instructions): COPD (Chronic Obstructive Pulmonary Disease) (ED) Prescriptions: predniSONE 50 mg PO DAILY #3 tablet Doxycycline [Vibramycin] 100 mg PO BID #20 cap Is patient prescribed a controlled substance at d/c from ED?: No Referrals: [facility] [place] [Primary Care Provider] - 1-2 days
[2021-09-03 18:20] VITALS: BP 111/64
== END 2021-09-03 18:20 | disposition home or self-care (01) ==
LOC: EC 13:57
DX: J44.9 Chronic obstructive pulmonary disease, unspecified (principal); Z87.891 Personal history of nicotine dependence; Z79.51 Long term (current) use of inhaled steroids; Z79.899 Other long term (current) drug therapy
CPT/HCPCS: 36415; 36600; 71045; 80053; 82805; 83605; 83735; 83880; 84484; 85025; 85610; 85730; 93005; 96365; 96375; 99285

== ENCOUNTER 2024-01-07 15:52 | Observation (INO) | payer MEDICARE, OTHER ==
[2024-01-07 17:08] LABS: Anisocytosis Slight; Basophils % (A) 0 %; Eosinophils # (A) 0.1 k/uL (0-0.7); Eosinophils % (A) 5 %; HCT 33.1 % (39.0-53.0); HGB 10.5 gm/dL (13.0-17.5); Hypochromasia Slight; Lymphocytes # (A) 0.3 k/uL (1.0-4.8); Lymphocytes % (A) 15 %; MCH 28.5 pg (25.0-35.0); MCHC 31.8 g/dL (31.0-37.0); MCV 89.9 fL (80.0-100.0); Monocytes # (A) 0.2 k/uL (0-1.0); Monocytes % (A) 8 %; Neutrophils # (A) 1.6 k/uL (1.3-7.7); Neutrophils % (A) 70 %; RBC 3.68 m/uL (4.30-5.90); RDW 16.9 % (11.5-15.5); WBC 2.2 k/uL (3.8-10.6)
--- NOTE | 2024-01-07 17:12 | ED ---
SOB HPI - General Source: patient, RN notes reviewed Mode of arrival: wheelchair Limitations: no limitations <Kacy Green - Last Filed: 01/07/24 17:10> - General Source: patient, RN notes reviewed, old records reviewed Mode of arrival: wheelchair Limitations: no limitations - History of Present Illness MD Complaint: shortness of breath, cough, chest pain -: days(s) (3) Severity: moderate Consistency: constant Improves With: nothing Known History Of: COPD, congestive heart failure Associated Symptoms: denies other symptoms Treatments Prior to Arrival: none <Osito Goodwin - Last Filed: 01/13/24 18:30> - General Chief Complaint: Shortness of Breath Stated Complaint: KAIT Time Seen by Provider: 01/07/24 17:10 - History of Present Illness Initial Comments: Quick [id number] male presenting with shortness of breath x 3 days with associated chest pain that began today. Patient states he has a history of paracentesis and reports the symptoms feel similar. He currently has lung tumor awaiting biopsy. Denies fever, cough. (Kacy Green) This is a 83-year-old male with severe shortness of breath increasing for 3 days with significant difficulty breathing especially with activity chest pain left- sided (Osito Goodwin) - Related Data Home Medications Medication Instructions Recorded Confirmed Albuterol Sulfate [Proventil Hfa] 2 puff INHALATION RT-QID PRN 06/11/16 01/08/24 Cyanocobalamin (Vitamin B-12) 1,000 mcg PO DAILY 03/11/19 01/08/24 [Vitamin B-12] metFORMIN HCL [Glucophage] 500 mg PO BID 03/11/19 01/08/24 Sodium Chloride [[place]] 1 spray EA NOSTRIL QID PRN 03/14/19 01/08/24 Fluticasone Propion/Salmeterol 1 puff INHALATION RT-BID 01/08/24 01/08/24 [Wixela 500-50 Inhub] Furosemide [Lasix] 40 mg PO DAILY 01/08/24 01/08/24 Petrolatum, White [Aquaphor] 1 applic TOPICAL DAILY 01/08/24 01/08/24 Spironolactone [Aldactone] 100 mg PO DAILY 01/08/24 01/08/24 Tiotropium 2.5 Mcg/Puff [Spiriva 2 puff INHALATION RT-DAILY 01/08/24 01/08/24 Respimat 2.5 Mcg] Triamcinolone 0.1% Ointment 1 applic TOPICAL BID 01/08/24 01/08/24 [Kenalog 0.1% Ointment] carvediloL [Coreg] 12.5 mg PO DAILY 01/08/24 01/08/24 Previous Rx's Medication Instructions Recorded Ferrous Sulfate [Iron (65 MG 325 mg PO DAILY #1 03/14/19 Elemental)] Aspirin 81 mg PO DAILY #30 tab 01/09/24 Atorvastatin [Lipitor] 80 mg PO HS #30 tab 01/09/24 predniSONE [Deltasone] 40 mg PO DAILY #8 tab 01/09/24 Allergies Allergy/AdvReac Type Severity Reaction Status Date / Time Penicillins Allergy Rash/Hives Verified 01/08/24 09:15 atorvastatin [From Lipitor] AdvReac Muscle pain Verified 01/08/24 09:28 pravastatin AdvReac Muscle pain Verified 01/08/24 09:28 simvastatin [From Zocor] AdvReac Muscle pain Verified 01/08/24 09:28 Review of Systems ROS Other: All systems not noted in ROS Statement are negative. <Kacy Green - Last Filed: 01/07/24 17:10> ROS Other: All systems not noted in ROS Statement are negative. <Osito Goodwin - Last Filed: 01/13/24 18:30> ROS Statement: Those systems with pertinent positive or pertinent negative responses have been documented in the HPI. Past Medical History Past Medical History: COPD, Liver Disease Additional Past Medical History / Comment(s): back pain, parascentesis, lung tumor waiting for biopsy, spots on liver History of Any Multi-Drug Resistant Organisms: None Reported Past Surgical History: Ear Surgery, Tonsillectomy Past Anesthesia/Blood Transfusion Reactions: No Reported Reaction Past Psychological History: No Psychological Hx Reported Smoking Status: Former smoker Past Alcohol Use History: None Reported Past Drug Use History: None Reported - Past Family History Father History Unknown: Yes <Kacy Green - Last Filed: 01/07/24 17:10> General Exam Limitations: no limitations <Kacy Green - Last Filed: 01/07/24 17:10> General appearance: alert, in no apparent distress, anxious, in distress Head exam: Present: atraumatic, normocephalic, normal inspection Eye exam: Present: normal appearance, PERRL, EOMI. Absent: scleral icterus, conjunctival injection, periorbital swelling ENT exam: Present: normal exam, mucous membranes moist Neck exam: Present: normal inspection. Absent: tenderness, meningismus, lymphadenopathy Respiratory exam: Present: respiratory distress, wheezes, rhonchi, decreased breath sounds, prolonged expiratory. Absent: rales, stridor Cardiovascular Exam: Present: regular rate, normal rhythm, normal heart sounds. Absent: systolic murmur, diastolic murmur, rubs, gallop, clicks GI/Abdominal exam: Present: soft, normal bowel sounds. Absent: distended, tenderness, guarding, rebound, rigid Extremities exam: Present: normal inspection, full ROM, normal capillary refill. Absent: tenderness, pedal edema, joint swelling, calf tenderness Back exam: Present: normal inspection Neurological exam: Present: alert, oriented X3, CN II-XII intact Psychiatric exam: Present: normal affect, normal mood Skin exam: Present: warm, dry, intact, normal color. Absent: rash <Osito Goodwin - Last Filed: 01/13/24 18:30> - General Exam Comments Initial Comments: Visual Physical Exam Vital signs reviewed General: Well-appearing, nontoxic, no acute distress. Head: Normocephalic, atraumatic Eyes: PERRLA, EOMI ENT: Airway patent Chest: Nonlabored breathing Skin: No visual rash, normal skin tone Neuro: Alert and oriented 3 Musculoskeletal: No gross abnormalities (Kacy Green) Course <Osito Goodwin - Last Filed: 01/13/24 18:30> Vital Signs 01/07/24 01/07/24 01/07/24 16:15 22:06 22:12 Temperature 97.5 F L Pulse Rate 63 63 70 Pulse Rate [ Right] Respiratory 28 H Rate Blood Pressure 110/55 Blood Pressure [Right Arm] O2 Sat by Pulse 96 Oximetry 01/07/24 01/08/24 01/08/24 22:29 00:00 04:30 Temperature 97.8 F 97.5 F L Pulse Rate 60 76 66 Pulse Rate [ Right] Respiratory 20 20 18 Rate Blood Pressure 111/65 117/72 109/63 Blood Pressure [Right Arm] O2 Sat by Pulse 99 99 98 Oximetry 01/08/24 01/08/24 01/08/24 05:28 06:15 08:42 Temperature 97.8 F Pulse Rate 68 61 74 Pulse Rate [ Right] Respiratory 19 19 Rate Blood Pressure 110/62 118/57 Blood Pressure [Right Arm] O2 Sat by Pulse 98 99 Oximetry 01/08/24 01/08/24 01/08/24 08:54 10:22 11:03 Temperature Pulse Rate 78 Pulse Rate [ 72 74 Right] Respiratory 16 16 Rate Blood Pressure Blood Pressure 122/56 102/57 [Right Arm] O2 Sat by Pulse 97 98 Oximetry 01/08/24 01/08/24 01/08/24 11:16 11:30 11:43 Temperature Pulse Rate 69 Pulse Rate [ 72 72 Right] Respiratory 16 16 18 Rate Blood Pressure 113/62 Blood Pressure 111/56 101/57 [Right Arm] O2 Sat by Pulse 97 97 98 Oximetry 01/08/24 01/08/24 01/08/24 11:59 12:07 16:04 Temperature Pulse Rate 72 74 74 Pulse Rate [ Right] Respiratory Rate Blood Pressure Blood Pressure [Right Arm] O2 Sat by Pulse Oximetry 01/08/24 01/08/24 01/08/24 16:14 16:15 18:05 Temperature Pulse Rate 78 74 75 Pulse Rate [ Right] Respiratory 20 20 Rate Blood Pressure 102/61 104/57 Blood Pressure [Right Arm] O2 Sat by Pulse 98 98 Oximetry 01/08/24 18:30 Temperature 97.8 F Pulse Rate Pulse Rate [ Right] Respiratory Rate Blood Pressure Blood Pressure [Right Arm] O2 Sat by Pulse Oximetry - Reevaluation(s) Reevaluation #1: 01/07/24 21:23 Medical records reviewed (Osito Goodwin) Reevaluation #2: 01/07/24 21:23 Patient symptoms unchanged (Osito Goodwin) Reevaluation #3: 01/07/24 21:23 Patient informed of results questions answered (Osito Goodwin) Reevaluation #4: Was pt. sent in by a medical professional or institution (, PA, ENGINEERING INSPECTION ASSISTANT, urgent care, hospital, or assisted...) When possible be specific @ -no Did you speak to anyone other than the patient for history (EMS, parent, family, police, friend...)? What history was obtained from this source @ -no Did you review nursing and triage notes (agree or disagree)? Why? @ -agree Are old charts reviewed (outside hosp., previous admission, EMS record, old EKG, old radiological studies, urgent care reports/EKG's, assisted records)? Report findings @ -yes Differential Diagnosis (chest pain, altered mental status, abdominal pain women, abdominal pain men, vaginal bleeding, weakness, fever, dyspnea, syncope, headache, dizziness, GI bleed, back pain, seizure, CVA, palpatations, mental health, musculoskeletal)? @ -prior EKG interpreted by me (3pts min.). @ -yes X-rays interpreted by me (1pt min.). @ -yes negative for acute disease CT interpreted by me (1pt min.). @ -no U/S interpreted by me (1pt. min.). @ -no What testing was considered but not performed or refused? (CT, X-rays, U/S, lab s)? Why? @ -none What meds were considered but not given or refused? Why? @ -none Did you discuss the management of the patient with other professionals (professionals i.e. , PA, ENGINEERING INSPECTION ASSISTANT, lab, RT, psych nurse, director social welfare, cartographic aide, teacher, promotions officer, shoe caser)? Give summary @ -no Was smoking cessation discussed for >3mins.? @ -no Was critical care preformed (if so, how long)? @ -no Were there social determinants of health that impacted care today? How? (Homelessness, low income, unemployed, alcoholism, drug addiction, transportation, low edu. Level, literacy, decrease access to med. care, retirement, rehab)? @ -none Was there de-escalation of care discussed even if they declined (Discuss DNR or withdrawal of care, Hospice)? DNR status @ -no What co-morbidities impacted this encounter? (DM, HTN, Smoking, COPD, CAD, Cancer, CVA, ARF, Chemo, Hep., AIDS, mental health diagnosis, sleep apnea, morbid obesity)? @ -none Was patient admitted / discharged? Hospital course, mention meds given and route, prescriptions, significant lab abnormalities, going to OR and other pertinent info. @ - 83 male will be admitted for significant COPD exacerbation with significant abdominal ascites need for paracentesis, patient admitted for COPD treatment and trending of troponin with chest pain Admitted Undiagnosed new problem with uncertain prognosis? @ -no Drug Therapy requiring intensive monitoring for toxicity (Heparin, Nitro, Insulin, Cardizem)? @ -no Were any procedures done? @ -no Diagnosis/symptom? @ -Ascites with cirrhosis, significant COPD exacerbation Acute, or Chronic, or Acute on Chronic? @ -Acute Uncomplicated (without systemic symptoms) or Complicated (systemic symptoms)? @ -Complicated Side effects of treatment? @ -no Exacerbation, Progression, or Severe Exacerbation? @ -exacerbation Poses a threat to life or bodily function? How? (Chest pain, [place], [place], pneumonia, PE, COPD, DKA, ARF, appy, cholecystitis, CVA, Diverticulitis, Homicidal, Suicidal, threat to staff... and all critical care pts) @ -yes with significant comorbid conditions and extremes of age (Osito Goodwin) Reevaluation #5: Differential Chest Pain: Stable Angina, Unstable Angina, STEMI, NSTEMI Aortic Dissection, Pneumothorax, Musculoskeletal, Esophageal Spasm GERD, Cholecystitis, Pancreatitis, Zoster, this is not meant to be an all-inclusive list. Differential Dyspnea: Coronary syndrome, arrhythmia, tamponade, asthma, COPD, pulmonary embolism, pneumonia, pneumothorax, pulmonary effusion, anaphylaxis, diabetic ketoacidosis, flailed chest, pulmonary contusion, diaphragmatic rupture, anemia, neuromuscular, this is not meant to be an all-inclusive list. (Osito Goodwin) - Consultations Consultation #1: Spoke with sound who agrees to admit this patient (Osito Goodwin) Medical Decision Making <Kacy Green - Last Filed: 01/07/24 17:10> - Lab Data Result diagrams: 01/08/24 04:57 01/08/24 04:57 - EKG Data -: EKG Interpreted by Me (EKG is 64 rate QRS 119 QTc 439) - Radiology Data Radiology results: report reviewed (Chest x-ray does show CHF and fluid overload state), image reviewed <Osito Goodwin - Last Filed: 01/13/24 18:30> - Medical Decision Making I completed the quick note portion of this chart signed Kacy Green PA-C (Kacy Green) 83 male will be admitted for significant COPD exacerbation with significant abdominal ascites need for paracentesis, patient admitted for COPD treatment and trending of troponin with chest pain (Osito Goodwin) - Lab Data Lab Results 01/07/24 01/07/24 01/07/24 Range/Units 16:31 16:31 16:31 WBC 2.2 L (3.8-10.6) k/uL RBC 3.68 L (4.30-5.90) m/uL Hgb 10.5 L (13.0-17.5) gm/dL Hct 33.1 L (39.0-53.0) % MCV 89.9 (80.0-100.0) fL MCH 28.5 (25.0-35.0) pg MCHC 31.8 (31.0-37.0) g/dL RDW 16.9 H (11.5-15.5) % Plt Count 76 L (150-450) k/uL MPV 9.0 Neutrophils % 70 % Lymphocytes % 15 % Monocytes % 8 % Eosinophils % 5 % Basophils % 0 % Neutrophils # 1.6 (1.3-7.7) k/uL Lymphocytes # 0.3 L (1.0-4.8) k/uL Monocytes # 0.2 (0-1.0) k/uL Eosinophils # 0.1 (0-0.7) k/uL Basophils # 0.0 (0-0.2) k/uL Manual Slide Review Performed Hypochromasia Slight Anisocytosis Slight Ovalocytes Present PT 12.1 (10.0-12.5) sec INR 1.1 (<1.2) APTT 25.2 (22.0-30.0) sec Sodium 138 (137-145) mmol/L Potassium 4.3 (3.5-5.1) mmol/L Chloride 111 H (98-107) mmol/L Carbon Dioxide 26 (22-30) mmol/L Anion Gap 1 mmol/L BUN 13 (9-20) mg/dL Creatinine 0.90 (0.66-1.25) mg/dL Est GFR (CKD-EPI)AfAm >90 (>60 ml/min/1.73 sqM) Est GFR (CKD-EPI)NonAf 78 (>60 ml/min/1.73 sqM) Glucose 138 H (74-99) mg/dL Plasma Lactic Acid Sotero (0.7-2.0) mmol/L Calcium 7.3 L (8.4-10.2) mg/dL Magnesium 2.1 (1.6-2.3) mg/dL Total Bilirubin 0.7 (0.2-1.3) mg/dL AST 35 (17-59) U/L ALT 17 (4-49) U/L Alkaline Phosphatase 135 H (38-126) U/L Troponin I (0.000-0.034) ng/mL NT-Pro-B Natriuret Pep 379 pg/mL Total Protein 4.8 L (6.3-8.2) g/dL Albumin 2.4 L (3.5-5.0) g/dL 01/07/24 01/07/24 Range/Units 16:31 16:31 WBC (3.8-10.6) k/uL RBC (4.30-5.90) m/uL Hgb (13.0-17.5) gm/dL Hct (39.0-53.0) % MCV (80.0-100.0) fL MCH (25.0-35.0) pg MCHC (31.0-37.0) g/dL RDW (11.5-15.5) % Plt Count (150-450) k/uL MPV Neutrophils % % Lymphocytes % % Monocytes % % Eosinophils % % Basophils % % Neutrophils # (1.3-7.7) k/uL Lymphocytes # (1.0-4.8) k/uL Monocytes # (0-1.0) k/uL Eosinophils # (0-0.7) k/uL Basophils # (0-0.2) k/uL Manual Slide Review Hypochromasia Anisocytosis Ovalocytes PT (10.0-12.5) sec INR (<1.2) APTT (22.0-30.0) sec Sodium (137-145) mmol/L Potassium (3.5-5.1) mmol/L Chloride (98-107) mmol/L Carbon Dioxide (22-30) mmol/L Anion Gap mmol/L BUN (9-20) mg/dL Creatinine (0.66-1.25) mg/dL Est GFR (CKD-EPI)AfAm (>60 ml/min/1.73 sqM) Est GFR (CKD-EPI)NonAf (>60 ml/min/1.73 sqM) Glucose (74-99) mg/dL Plasma Lactic Acid Sotero 1.0 (0.7-2.0) mmol/L Calcium (8.4-10.2) mg/dL Magnesium (1.6-2.3) mg/dL Total Bilirubin (0.2-1.3) mg/dL AST (17-59) U/L ALT (4-49) U/L Alkaline Phosphatase (38-126) U/L Troponin I <0.012 (0.000-0.034) ng/mL NT-Pro-B Natriuret Pep pg/mL Total Protein (6.3-8.2) g/dL Albumin (3.5-5.0) g/dL Disposition <Kacy Green - Last Filed: 01/07/24 17:10> Is patient prescribed a controlled substance at d/c from ED?: No Time of Disposition: 21:20 <Osito Goodwin - Last Filed: 01/13/24 18:30> Clinical Impression: Abdominal pain, Ascites, Cirrhosis, Abdominal distention, Acute exacerbation of chronic obstructive pulmonary disease, Alcoholic cirrhosis of liver with ascites, Chest pain Disposition: ADMITTED IP TO THIS HOSP Condition: Stable
[2024-01-07 17:13] LABS: INR 1.1 (<1.2); Partial Thromboplastin Time 25.2 sec (22.0-30.0); Prothrombin Time 12.1 sec (10.0-12.5)
[2024-01-07 17:16] LABS: ALT 17 U/L (4-49); AST 35 U/L (17-59); African American GFR (CKD) >90 (>60 ml/min/1.73 sqM); Albumin 2.4 g/dL (3.5-5.0); Alkaline Phosphatase 135 U/L (38-126); Anion Gap 1 mmol/L; Blood Urea Nitrogen 13 mg/dL (9-20); Calcium 7.3 mg/dL (8.4-10.2); Carbon Dioxide 26 mmol/L (22-30); Chloride 111 mmol/L (98-107); Glucose 138 mg/dL (74-99); Magnesium 2.1 mg/dL (1.6-2.3); Non-African American GFR(CKD) 78 (>60 ml/min/1.73 sqM); Potassium 4.3 mmol/L (3.5-5.1); Sodium 138 mmol/L (137-145); Total Bilirubin 0.7 mg/dL (0.2-1.3); Total Protein 4.8 g/dL (6.3-8.2)
[2024-01-07 17:24] LABS: NT-Pro-B-Type Natriuretic Pept 379 pg/mL
[2024-01-07 17:58] LABS: Platelet Count 76 k/uL (150-450)
[2024-01-07 17:59] LABS: Ovalocytes Present
--- NOTE | 2024-01-07 19:06 | XR ---
EXAMINATION TYPE: XR chest 2V DATE OF EXAM: 01/07/2024 6:54 PM CLINICAL INDICATION: Male, 83 years old with history of difficulty breathing; [facility] COMPARISON: Chest radiographs from 09/03/2021 TECHNIQUE: XR chest 2V Frontal and lateral views of the chest. FINDINGS: Lungs/Pleura: No evidence of focal consolidation or pneumothorax. Blunting of the costophrenic angles is present. Pulmonary vascularity: Pulmonary vascular congestion. Heart/mediastinum: Cardiomediastinal silhouette is enlarged and stable. Musculoskeletal: No acute osseous pathology. IMPRESSION: Cardiomegaly, pulmonary vascular congestion and bilateral pleural effusions. Correlate with BNP for c ongestive heart failure. [facility], , 01/07/2024 7:03 PM
[2024-01-07] MEDS ORDERED: NALOXONE 0.4 MG/ML 1 ML VIAL IV PRN (21:21)
[2024-01-07] MEDS ORDERED: MORPHINE SULFATE 4 MG/ML SYRINGE IV PRN (21:21)
[2024-01-07] MEDS: IPRATROPIUM-ALBUTEROL 3 ML NEB INHALATION STA (22:04)
[2024-01-07] MEDS: SODIUM CHLORIDE 0.9% 1,000 ML IV SCH (22:24)
[2024-01-07] MEDS ORDERED: IPRATROPIUM-ALBUTEROL 3 ML NEB INHALATION PRN (23:16)
--- NOTE | 2024-01-07 23:16 | P.HPIM ---
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 Patient notes that earlier today he had a episode of sharp substernal chest discomfort, lasting for 3 minutes and then resolving spontaneously. Patient also reports feeling short of breath over the past 3 days despite use of his inhalers. Denies experiencing fever, chills, cough, nausea, vomiting, abdominal pain, diarrhea. Denies diaphoresis or palpitations. Patient reports that he has been following with [facility] for his liver failure and is schedu led to undergo multiple biopsies of both his liver and lung over the next few coming weeks. Chest x-ray the emergency room revealed findings of congestive heart failure with EKG showing indeterminate rhythm at 64 bpm. Laboratory evaluation revealed WBC count 2.2, hemoglobin 10.5, platelet count 76, chloride 111, glucose 138, calcium 7.3, troponin less than 0.012 with albumin 2.4. ED documentation reviewed and case discussed with ED provider. Review of systems: Pertinent positives and negatives as discussed in HPI, a complete review of systems was performed and all other systems are negative. Physical examination: Vital signs reviewed General: non toxic, no distress, appears at stated age, normal weight Derm: no unusual rashes/lesions, warm Head: atraumatic, normocephalic, symmetric Eyes: EOMI, no lid lag, anicteric sclera, pupils equal round reactive to light ENT: Nose and ears atraumatic Neck: No cervical lymphadenopathy, trachea midline, supple Mouth: no lip lesion, mucus membranes moist Cardiovascular: S1S2 reg, no murmur, positive dorsalis pedis pulse bilateral, no edema Lungs: Diminished air entry bilaterally with wheezing appreciated, no accessory muscle use Abdominal: Distended, nontender to palpation, no guarding Ext: muscle strength 5 out of 5 in all 4 extremities grossly, no gross muscle atrophy, no contractures, Neuro: CN II-XI grossly intact, no gross focal neuro deficits Psych: Alert, oriented, appropriate affect Assessment: Acute COPD exacerbation Fluid overload, secondary to cirrhosis versus congestive heart failure Pancytopenia, at baseline Chest pain, atypical Imaging: Chest x-ray the emergency room revealed findings of congestive heart failure with EKG showing indeterminate rhythm at 64 bpm. Data Review: Laboratory evaluation revealed WBC count 2.2, hemoglobin 10.5, platelet count 76, chloride 111, glucose 138, calcium 7.3, troponin less than 0.012 with albumin 2.4. Plan: Initiate Solu-Medrol with DuoNebs [id number] and as needed Obtain echocardiogram Pulmonary consult Consult GI for cirrhosis with severe ascites, may require paracentesis Ultrasound for paracentesis markings Cardiology consulted for chest pain Cardiac moniotring Aspirin and Lipitor DVT prophylaxis: IPCDs The patient is admitted with an anticipated less than 2 midnight stay for evaluation of COPD CODE STATUS: Full Code Discussed with: Patient Anticipated discharge place: Home Past Medical History Past Medical History: COPD, Liver Disease Additional Past Medical History / Comment(s): back pain, parascentesis, lung tumor waiting for biopsy, spots on liver History of Any Multi-Drug Resistant Organisms: None Reported Past Surgical History: Ear Surgery, Tonsillectomy Past Anesthesia/Blood Transfusion Reactions: No Reported Reaction Past Psychological History: No Psychological Hx Reported Smoking Status: Former smoker Past Alcohol Use History: None Reported Past Drug Use History: None Reported - Past Family History Father History Unknown: Yes Family Medical History: Hyperlipidemia Medications and Allergies Home Medications Medication Instructions Recorded Confirmed Type Albuterol Sulfate [Proventil Hfa] 2 puff INHALATION RT-QID PRN 06/11/16 03/11/19 History Budesonide-Formot 160-4.5 Mcg 2 puff INHALATION RT-BID 06/11/16 03/11/19 History [Symbicort 160-4.5 Mcg Inhaler] Atorvastatin [Lipitor] 20 mg PO HS 03/11/19 03/11/19 History Cyanocobalamin (Vitamin B-12) 1,000 mcg PO DAILY 03/11/19 03/11/19 History [Vitamin B-12] Docusate [Colace] 100 mg PO BID PRN 03/11/19 03/11/19 History Tiotropium 18 Mcg/Puff [Spiriva] 1 cap INHALATION RT-DAILY 03/11/19 03/11/19 History Vit C/E/Zn/Coppr/Lutein/Zeaxan 1 cap PO BID 03/11/19 03/11/19 History [Preservision Areds 2 Softgel] metFORMIN HCL [Glucophage] 500 mg PO BID 03/11/19 03/11/19 History Ferrous Sulfate [Iron (65 MG 325 mg PO DAILY #1 03/14/19 03/11/19 Rx Elemental)] Furosemide [Lasix] 40 mg PO BID@0900,1600 #60 tab 03/14/19 Rx Sodium Chloride [[place]] 1 spray EA NOSTRIL DAILY 03/14/19 03/14/19 History Spironolactone [Aldactone] 50 mg PO BID #60 tab 03/14/19 Rx Doxycycline [Vibramycin] 100 mg PO BID #20 cap 09/03/21 Rx predniSONE 50 mg PO DAILY #3 tablet 09/03/21 Rx Allergies Allergy/AdvReac Type Severity Reaction Status Date / Time Penicillins Allergy Rash/Hives Verified 01/07/24 16:14 Physical Exam Vitals: Vital Signs Temp Pulse Resp BP Pulse Ox 01/07/24 22:29 97.8 F 60 20 111/65 99 01/07/24 22:12 70 01/07/24 22:06 63 01/07/24 16:15 97.5 F L 63 28 H 110/55 96 Intake and Output 01/07/24 01/07/24 01/08/24 14:59 22:59 06:59 Other: Weight 72.575 kg Results CBC & Chem 7: 01/07/24 16:31 01/07/24 16:31 Labs: Abnormal Lab Results - Last 24 Hours (Table) 01/07/24 01/07/24 Range/Units 16:31 16:31 WBC 2.2 L (3.8-10.6) k/uL RBC 3.68 L (4.30-5.90) m/uL Hgb 10.5 L (13.0-17.5) gm/dL Hct 33.1 L (39.0-53.0) % RDW 16.9 H (11.5-15.5) % Plt Count 76 L (150-450) k/uL Lymphocytes # 0.3 L (1.0-4.8) k/uL Chloride 111 H (98-107) mmol/L Glucose 138 H (74-99) mg/dL Calcium 7.3 L (8.4-10.2) mg/dL Alkaline Phosphatase 135 H (38-126) U/L Total Protein 4.8 L (6.3-8.2) g/dL Albumin 2.4 L (3.5-5.0) g/dL
[2024-01-07] MEDS: ASPIRIN 325 MG TAB PO STA (23:56)
[2024-01-07] MEDS: methylPREDNISolone SOD SUCCI 125 MG/2 ML VIAL IV SCH (23:56)
[2024-01-07] MEDS: ATORVASTATIN 80 MG TAB PO SCH (23:56)
[2024-01-08 05:30] LABS: ALT 18 U/L (4-49); AST 35 U/L (17-59); African American GFR (CKD) >90 (>60 ml/min/1.73 sqM); Albumin 2.5 g/dL (3.5-5.0); Alkaline Phosphatase 135 U/L (38-126); Anion Gap 3 mmol/L; Blood Urea Nitrogen 13 mg/dL (9-20); Calcium 7.4 mg/dL (8.4-10.2); Carbon Dioxide 22 mmol/L (22-30); Chloride 112 mmol/L (98-107); Glucose 139 mg/dL (74-99); Magnesium 2.1 mg/dL (1.6-2.3); Non-African American GFR(CKD) 82 (>60 ml/min/1.73 sqM); Phosphorus 3.1 mg/dL (2.5-4.5); Potassium 4.7 mmol/L (3.5-5.1); Sodium 137 mmol/L (137-145); Total Bilirubin 0.6 mg/dL (0.2-1.3); Total Protein 4.8 g/dL (6.3-8.2)
[2024-01-08 05:50] LABS: Anisocytosis Slight; Basophils % (A) 0 %; Eosinophils % (A) 1 %; HCT 32.4 % (39.0-53.0); HGB 9.9 gm/dL (13.0-17.5); Hypochromasia Marked; Lymphocytes # (A) 0.3 k/uL (1.0-4.8); Lymphocytes % (A) 14 %; MCHC 30.5 g/dL (31.0-37.0); MCV 91.8 fL (80.0-100.0); Mean Platelet Volume 8.1; Monocytes % (A) 2 %; Neutrophils # (A) 1.4 k/uL (1.3-7.7); Neutrophils % (A) 81 %; RBC 3.53 m/uL (4.30-5.90); RDW 16.6 % (11.5-15.5); WBC 1.8 k/uL (3.8-10.6)
[2024-01-08 05:51] LABS: Platelet Count 58 k/uL (150-450)
[2024-01-08] MEDS: ASPIRIN 81 MG PO SCH (08:03)
[2024-01-08] MEDS: IPRATROPIUM-ALBUTEROL 3 ML NEB INHALATION SCH (08:40)
[2024-01-08] MEDS: SYMBICORT 160-4.5 MCG INHALER INHALATION SCH (08:40)
--- NOTE | 2024-01-08 09:28 | US ---
EXAMINATION TYPE: US abdomen limited DATE OF EXAM: 01/08/2024 COMPARISON: NONE CLINICAL INDICATION: Male, 83 years old with history of assess for fluid pocket; Ascites Fluid visualized. IMPRESSION: As above [facility], , 01/08/2024 8:57 AM
--- NOTE | 2024-01-08 11:31 | P.CONS ---
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 Patient was diagnosed back in 2019 for alcohol liver cirrhosis with ascites. He has been following with the [facility] [place]. He gets paracentesis about every 6 months. States that he was taken off of his diuretics by his liver specialist. He is scheduled January 18 for biopsy of the lung and liver for concerns of lung mass and liver mass. States he has been having chest pain for the last weeks duration. Having some additional abdominal distention. Denies any nausea or vomiting, no abdominal pain. Review of Systems REVIEW OF SYSTEMS: CARDIOPULMONARY: Chest pain with shortness of breath. Gastrointestinal: No abdominal pain. No nausea or vomiting. No hematemesis, coffee-ground emesis. No rectal bleeding, or melena. Ascites. GENITOURINARY: No dysuria or hematuria. MUSCULOSKELETAL: Reports normal range of motion., Joint pain. SKIN: No rashes. No jaundice. ENDOCRINE: No chills, fevers. No excessive weight gain or loss. No polydipsia or polyuria. PSYCHIATRIC: Unremarkable. NEUROLOGY: No change in mental status. Denies dizziness, headache. ENT: Vision unremarkable. CONSTITUTIONAL: No recent weight loss. No fever, chills, night sweats. Past Medical History Past Medical History: COPD, Liver Disease Additional Past Medical History / Comment(s): back pain, parascentesis, lung tumor waiting for biopsy, spots on liver History of Any Multi-Drug Resistant Organisms: None Reported Past Surgical History: Ear Surgery, Tonsillectomy Past Anesthesia/Blood Transfusion Reactions: No Reported Reaction Past Psychological History: No Psychological Hx Reported Smoking Status: Former smoker Past Alcohol Use History: None Reported Past Drug Use History: None Reported - Past Family History Father History Unknown: Yes Family Medical History: Hyperlipidemia Medications and Allergies Home Medications Medication Instructions Recorded Confirmed Type Albuterol Sulfate [Proventil Hfa] 2 puff INHALATION RT-QID PRN 06/11/16 01/08/24 History Cyanocobalamin (Vitamin B-12) 1,000 mcg PO DAILY 12/27/19 10/25/24 History [Vitamin B-12] metFORMIN HCL [Glucophage] 500 mg PO BID 03/11/19 01/08/24 History Ferrous Sulfate [Iron (65 MG 325 mg PO DAILY #1 03/14/19 01/08/24 Rx Elemental)] Sodium Chloride [[place]] 1 spray EA NOSTRIL QID PRN 03/14/19 01/08/24 History Fluticasone Propion/Salmeterol 1 puff INHALATION RT-BID 01/08/24 01/08/24 History [Wixela 500-50 Inhub] Furosemide [Lasix] 40 mg PO DAILY 01/08/24 01/08/24 History Petrolatum, White [Aquaphor] 1 applic TOPICAL DAILY 01/08/24 01/08/24 History Spironolactone [Aldactone] 100 mg PO DAILY 01/08/24 01/08/24 History Tiotropium 2.5 Mcg/Puff [Spiriva 2 puff INHALATION RT-DAILY 01/08/24 01/08/24 History Respimat 2.5 Mcg] Triamcinolone 0.1% Ointment 1 applic TOPICAL BID 01/08/24 01/08/24 History [Kenalog 0.1% Ointment] carvediloL [Coreg] 12.5 mg PO DAILY 01/08/24 01/08/24 History Allergies Allergy/AdvReac Type Severity Reaction Status Date / Time Penicillins Allergy Rash/Hives Verified 01/08/24 09:15 atorvastatin [From Lipitor] AdvReac Muscle pain Verified 01/08/24 09:28 pravastatin AdvReac Muscle pain Verified 01/08/24 09:28 simvastatin [From Zocor] AdvReac Muscle pain Verified 01/08/24 09:28 Physical Exam Vitals: Vital Signs Temp Pulse Resp BP Pulse Ox 01/08/24 06:15 61 19 118/57 99 01/08/24 05:28 97.8 F 68 19 110/62 98 01/08/24 04:30 66 18 109/63 98 01/08/24 00:00 97.5 F L 76 20 117/72 99 01/07/24 22:29 97.8 F 60 20 111/65 99 01/07/24 22:12 70 01/07/24 22:06 63 01/07/24 16:15 97.5 F L 63 28 H 110/55 96 Intake and Output 01/07/24 01/07/24 01/08/24 14:59 22:59 06:59 Other: Weight 72.575 kg General appearance: The patient is alert, oriented, appears in no acute distress. HET: Head is normocephalic and atraumatic. Conjunctiva pink. Sclera anicteric. Neck: Supple without lymphadenopathy. Trachea midline. Heart: Regular. Lungs: Equal expansion, normal respiratory effort. Abdomen: Soft, nontender, nondistended. Small to moderate amount of ascites. Skin: No rashes. No jaundice. Extremities: Normal skin color and turgor. No pedal edema. Neurological: No focal deficits. Alert and oriented x3. Results CBC & Chem 7: 01/08/24 04:57 01/08/24 04:57 Labs: Abnormal Lab Results - Last 24 Hours (Table) 01/07/24 01/07/24 01/08/24 Range/Units 16:31 16:31 04:57 WBC 2.2 L 1.8 L (3.8-10.6) k/uL RBC 3.68 L 3.53 L (4.30-5.90) m/uL Hgb 10.5 L 9.9 L (13.0-17.5) gm/dL Hct 33.1 L 32.4 L (39.0-53.0) % MCHC 30.5 L (31.0-37.0) g/dL RDW 16.9 H 16.6 H (11.5-15.5) % Plt Count 76 L 58 L (150-450) k/uL Lymphocytes # 0.3 L 0.3 L (1.0-4.8) k/uL Chloride 111 H (98-107) mmol/L Glucose 138 H (74-99) mg/dL Calcium 7.3 L (8.4-10.2) mg/dL Alkaline Phosphatase 135 H (38-126) U/L Total Protein 4.8 L (6.3-8.2) g/dL Albumin 2.4 L (3.5-5.0) g/dL 01/08/24 Range/Units 04:57 WBC (3.8-10.6) k/uL RBC (4.30-5.90) m/uL Hgb (13.0-17.5) gm/dL Hct (39.0-53.0) % MCHC (31.0-37.0) g/dL RDW (11.5-15.5) % Plt Count (150-450) k/uL Lymphocytes # (1.0-4.8) k/uL Chloride 112 H (98-107) mmol/L Glucose 139 H (74-99) mg/dL Calcium 7.4 L (8.4-10.2) mg/dL Alkaline Phosphatase 135 H (38-126) U/L Total Protein 4.8 L (6.3-8.2) g/dL Albumin 2.5 L (3.5-5.0) g/dL Comments: Chest x-ray reports cardiomegaly, pulmonary vascular congestion and bilateral pleural effusions. Correlate with BNP for congestive heart failure. Assessment and Plan (1) Alcoholic cirrhosis of liver with ascites Narrative/Plan: 83-year-old male with a known history of alcoholic cirrhosis of the liver diagnosed back in 2018. Presentation was a previous heavy drinker for 40+ years drinking 2 for's a day. He currently follows with [facility] [place]. They have been managing his cirrhosis and ascites. Apparently patient has concerns for lung mass and liver mass and is scheduled for biopsies on January 18 in [place]. Will plan for ultrasound to evaluate for paracentesis. Current Visit: Yes Status: Acute Code(s): K70.31 - ALCOHOLIC CIRRHOSIS OF LIVER WITH ASCITES SNOMED Code(s): 742987083 (2) Chest pain Current Visit: Yes Status: Acute Code(s): R07.9 - CHEST PAIN, UNSPECIFIED SNOMED Code(s): 66564323 Plan: 1. Continue symptomatic and supportive care 2. Low-sodium diet 3. Ultrasound for evaluation for paracentesis 4. Fluid cytology ordered 5. No further gastroenterology workup indicated 6. 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 Rest of medical management per primary medical team Thank you for allowing us to participate in the care of the patient, the GI service will sign off, gastroenterology will not be available at the hospital this weekend and through next week. If further evaluation by gastroenterology is required the patient will need transfer as per the primary team's discretion. Dr. Shankar Santiago I agree with the dictator's note, documented as a scribe by Shalini Tomas.
--- NOTE | 2024-01-08 11:34 | P.CRDCN ---
History of Present Illness History of present illness: HISTORY OF PRESENT ILLNESS: This is a 83-year-old male with a past medical history significant for diabetes, hypertension, and liver disease. Patient follows [facility] for [facility]. He denies following with a detention attendant. We have been asked to see the patient in consultation for chest pain. Patient examined at the bedside in the emergency room. Patient presented to the hospital with a chief complaint of shortness of breath. He states he has been feeling short of breath for the past few days. He states yesterday he also began to have chest discomfort in the middle of his chest and also in the epigastric region and felt like he was going to pass out. At the time of examination, he denies any chest pain or pressure. Vital signs are stable. Bedside telemetry reveals sinus mechanism. Interventional radiology has been consulted to perform paracentesis. DIAGNOSTICS: - EKG reveals sinus mechanism with no signs of acute ischemia. Baseline artifact. - Chest xray cardiomegaly, pulmonary vascular congestion and bilateral pleural effusions. - Laboratory data: WBC 1.8. Hemoglobin 9.9. Platelet count 58. Sodium 137. Potassium 4.7. BUN 13. Creatinine 0.81. Troponin negative x 3. proBNP 379. - Current home cardiac medications include carvedilol 12.5 mg daily, Aldactone 100 mg daily, Lasix 40 mg daily - No previous echocardiogram, stress test, or cardiac catheterization available in EMR for review REVIEW OF SYSTEMS: At the time of my exam: CONSTITUTIONAL: Denies fever or chills. HEENT: Denies blurred vision, vision changes, or eye pain. Denies hemoptysis CARDIOVASCULAR: Denies chest pain. Denies orthopnea. Denies PND. Denies palpitations RESPIRATORY: Reports shortness of breath. GASTROINTESTINAL: Denies abdominal pain. Denies nausea or vomiting. HEMATOLOGIC: Denies bleeding disorders. GENITOURINARY: Denies any blood in urine. SKIN: Denies pruitis. Denies rash. PHYSICAL EXAM: VITAL SIGNS: Reviewed. GENERAL: Well-developed in no acute distress. HEENT: Head is normocephalic. Pupils are equal, round. Sclerae anicteric. Mucous membranes of the mouth are moist. Neck supple. No JVD or thyromegaly LUNGS: Respirations even and unlabored. Lungs essentially clear to auscultation bilaterally. HEART: Regular rate and rhythm. S1 and S2 heard. ABDOMEN: Soft. Nontender. Mildly distended. EXTREMITIES: Normal range of motion. No clubbing or cyanosis. Peripheral pulses intact. No lower extremity edema NEUROLOGIC: Awake and alert. Oriented x 3. ASSESSMENT: Shortness of breath Liver cirrhosis Fluid overload, secondary to liver disease, no evidence of congestive heart failure, proBNP 379 Chest pain, atypical, troponin negative x 3, ACS ruled out History of hypertension Diabetes Reported liver and lung mass, scheduled for patient biopsy per patient Pancytopenia History of alcohol abuse PLAN: An acute coronary event has been ruled out Obtain 2D echo to assess cardiac structure and function Patient is fluid overload is secondary to liver disease; no evidence of congestive heart failure Resume home cardiac medications IR consulted for paracentesis Further recommendations pending patient course Nurse practitioner note has been reviewed by physician. Signing provider agrees with the documented findings, assessment, and plan of care documented by PANEL MONITOR as a scribe. Past Medical History Past Medical History: COPD, Liver Disease Additional Past Medical History / Comment(s): back pain, parascentesis, lung tumor waiting for biopsy, spots on liver History of Any Multi-Drug Resistant Organisms: None Reported Past Surgical History: Ear Surgery, Tonsillectomy Past Anesthesia/Blood Transfusion Reactions: No Reported Reaction Past Psychological History: No Psychological Hx Reported Smoking Status: Former smoker Past Alcohol Use History: None Reported Past Drug Use History: None Reported - Past Family History Father History Unknown: Yes Family Medical History: Hyperlipidemia Medications and Allergies Home Medications Medication Instructions Recorded Confirmed Type Albuterol Sulfate [Proventil Hfa] 2 puff INHALATION RT-QID PRN 06/11/16 01/08/24 History Cyanocobalamin (Vitamin B-12) 1,000 mcg PO DAILY 03/11/19 01/08/24 History [Vitamin B-12] metFORMIN HCL [Glucophage] 500 mg PO BID 03/11/19 01/08/24 History Ferrous Sulfate [Iron (65 MG 325 mg PO DAILY #1 03/14/19 01/08/24 Rx Elemental)] Sodium Chloride [[place]] 1 spray EA NOSTRIL QID PRN 03/14/19 01/08/24 History Fluticasone Propion/Salmeterol 1 puff INHALATION RT-BID 01/08/24 01/08/24 History [Wixela 500-50 Inhub] Furosemide [Lasix] 40 mg PO DAILY 01/08/24 01/08/24 History Petrolatum, White [Aquaphor] 1 applic TOPICAL DAILY 01/08/24 01/08/24 History Spironolactone [Aldactone] 100 mg PO DAILY 01/08/24 01/08/24 History Tiotropium 2.5 Mcg/Puff [Spiriva 2 puff INHALATION RT-DAILY 01/08/24 01/08/24 History Respimat 2.5 Mcg] Triamcinolone 0.1% Ointment 1 applic TOPICAL BID 01/08/24 01/08/24 History [Kenalog 0.1% Ointment] carvediloL [Coreg] 12.5 mg PO DAILY 01/08/24 01/08/24 History Allergies Allergy/AdvReac Type Severity Reaction Status Date / Time Penicillins Allergy Rash/Hives Verified 01/08/24 09:15 atorvastatin [From Lipitor] AdvReac Muscle pain Verified 01/08/24 09:28 pravastatin AdvReac Muscle pain Verified 01/08/24 09:28 simvastatin [From Zocor] AdvReac Muscle pain Verified 01/08/24 09:28 Physical Exam Vitals: Vital Signs Temp Pulse Resp BP Pulse Ox 01/08/24 08:54 78 01/08/24 08:42 74 01/08/24 06:15 61 19 118/57 99 01/08/24 05:28 97.8 F 68 19 110/62 98 01/08/24 04:30 66 18 109/63 98 01/08/24 00:00 97.5 F L 76 20 117/72 99 01/07/24 22:29 97.8 F 60 20 111/65 99 01/07/24 22:12 70 01/07/24 22:06 63 01/07/24 16:15 97.5 F L 63 28 H 110/55 96 Intake and Output 01/07/24 01/08/24 01/08/24 22:59 06:59 14:59 Other: Weight 72.575 kg Results 01/08/24 04:57 01/08/24 04:57 Cardiac Enzymes 01/07/24 01/07/24 01/08/24 Range/Units 16:31 16:31 00:39 AST 35 (17-59) U/L Troponin I <0.012 <0.012 (0.000-0.034) ng/mL 01/08/24 01/08/24 Range/Units 04:57 04:57 AST 35 (17-59) U/L Troponin I <0.012 (0.000-0.034) ng/mL Coagulation 01/07/24 Range/Units 16:31 PT 12.1 (10.0-12.5) sec APTT 25.2 (22.0-30.0) sec CBC 01/07/24 01/08/24 Range/Units 16:31 04:57 WBC 2.2 L 1.8 L (3.8-10.6) k/uL RBC 3.68 L 3.53 L (4.30-5.90) m/uL Hgb 10.5 L 9.9 L (13.0-17.5) gm/dL Hct 33.1 L 32.4 L (39.0-53.0) % Plt Count 76 L 58 L (150-450) k/uL Comprehensive Metabolic Panel 01/07/24 01/08/24 Range/Units 16:31 04:57 Sodium 138 137 (137-145) mmol/L Potassium 4.3 4.7 (3.5-5.1) mmol/L Chloride 111 H 112 H (98-107) mmol/L Carbon Dioxide 26 22 (22-30) mmol/L BUN 13 13 (9-20) mg/dL Creatinine 0.90 0.81 (0.66-1.25) mg/dL Glucose 138 H 139 H (74-99) mg/dL Calcium 7.3 L 7.4 L (8.4-10.2) mg/dL AST 35 35 (17-59) U/L ALT 17 18 (4-49) U/L Alkaline Phosphatase 135 H 135 H (38-126) U/L Total Protein 4.8 L 4.8 L (6.3-8.2) g/dL Albumin 2.4 L 2.5 L (3.5-5.0) g/dL Current Medications Generic Name Dose Route Start Last Admin Trade Name Freq PRN Reason Stop Dose Admin Albuterol/Ipratropium 3 ml 01/07/24 23:16 Ipratropium-Albuterol 3 Ml Neb INHALATION RT-QID PRN Shortness Of Breath Or Wheezing Albuterol/Ipratropium 3 ml 01/08/24 08:00 01/08/24 08:40 Ipratropium-Albuterol 3 Ml Neb INHALATION 3 ml RT-QID HANNAH Administration Aspirin 81 mg 01/08/24 09:00 01/08/24 08:03 Aspirin 81 Mg PO 81 mg DAILY HANNAH Administration Atorvastatin Calcium 80 mg 01/07/24 23:30 01/07/24 23:56 Atorvastatin 80 Mg Tab PO 80 mg HS HANNAH Administration Budesonide/Formoterol Fumarate 2 puff 01/08/24 09:00 01/08/24 08:40 Symbicort 160-4.5 Mcg Inhaler INHALATION 2 puff RT-BID HANNAH Administration Sodium Chloride 1,000 mls @ 25 mls/hr 01/07/24 21:30 01/07/24 22:24 Saline 0.9% IV 75 mls/hr .Q24H HANNAH Administration Methylprednisolone Sodium Succinate 60 mg 01/08/24 00:00 01/08/24 05:25 Methylprednisolone Sod Succi 125 Mg/2 Ml Vial IV 60 mg Q6HR HANNAH Administration Morphine Sulfate 4 mg 01/07/24 21:21 Morphine Sulfate 4 Mg/Ml Syringe IV Q4HR PRN Severe Pain (Scale 7 to 10) Naloxone HCl 0.2 mg 01/07/24 21:21 Naloxone 0.4 Mg/Ml 1 Ml Vial IV Q2M PRN Opioid Reversal Intake and Output 01/07/24 01/08/24 01/08/24 22:59 06:59 14:59 Other: Weight 72.575 kg 01/08/24 04:57 01/08/24 04:57
[2024-01-08] MEDS: carvediloL 12.5 MG TAB PO SCH (11:45)
--- NOTE | 2024-01-08 12:34 | P.CNPUL ---
History of Present Illness Consult date: 01/08/24 Requesting physician: Sara Arce Reason for consult: dyspnea Chief complaint: Shortness of breath, chest pain History of present illness: This is an 83-year-old male patient with a known history of hyperlipidemia, diabetes mellitus, chronic obstructive pulmonary disease, former smoker, former heavy alcohol use who follows at the [facility] for his primary care needs. He also has a history of liver disease and had undergone paracentesis x 2 in the past. He also is noted to have a lung nodule and liver nodule that is being followed. He is scheduled to have further testing on January 12 at [facility] [place] and was planning for possible liver biopsy on January 20, 2024. He presented here to the emergency room yesterday with complaints of chest tightness and shortness of breath. He states he was outside working and may have overdid it prior to his symptoms. He denies any fever or chills. No cough or congestion. No hemoptysis. Chest x-ray reveals cardiomegaly with pulmonary vascular congestion and small bilateral pleural effusions. Ultrasound of the abdomen is revealing ascites. White count 1.8. Hemoglobin 9.9. Platelets 58,000. Sodium 137. Potassium 4.7. Bicarb 22. BUN 13. Creatinine 0.81. Glucose 139. AST 35. ALT 18. Alk phos 135. Troponins are negative x 3. proBNP 379. The patient is seen in consultation in the emergency department. He is currently sitting up in a stretcher. Awake and alert in no acute distress. He is somewhat dyspneic with conversation. Dyspneic with minimal exertion. He is maintaining O2 saturations in the 90s on 2 L/min per nasal cannula. He is afebrile. Hemodynamically stable. Review of Systems REVIEW OF SYSTEMS: CONSTITUTIONAL: Denies any recent significant weight loss or weight gain. EYES: Denies change in vision. EARS, NOSE, MOUTH, THROAT: Denies headaches, denies sore throat. CARDIOVASCULAR: Positive for chest pain, no palpitations or syncopal episodes. RESPIRATORY: Positive for shortness of breath, cough, congestion no hemoptysis. GASTROINTESTINAL: Denies change in appetite, denies abdominal pain GENITOURINARY: Denies hematuria, denies infections. MUSKULOSKELETAL: Denies pain, denies swelling. INTEGUMENTARY: Denies rash, denies eczema. NEUROLOGICAL: Denies recent memory loss, no recent seizure activity. PSYCHIATRIC: Denies anxiety, denies depression. HEMATOLOGIC/LYMPHATIC: Denies anemia, denies enlarged lymph nodes. Past Medical History Past Medical History: COPD, Liver Disease Additional Past Medical History / Comment(s): back pain, parascentesis, lung tumor waiting for biopsy, spots on liver History of Any Multi-Drug Resistant Organisms: None Reported Past Surgical History: Ear Surgery, Tonsillectomy Past Anesthesia/Blood Transfusion Reactions: No Reported Reaction Past Psychological History: No Psychological Hx Reported Smoking Status: Former smoker Past Alcohol Use History: None Reported Past Drug Use History: None Reported - Past Family History Father History Unknown: Yes Family Medical History: Hyperlipidemia Medications and Allergies Home Medications Medication Instructions Recorded Confirmed Type Albuterol Sulfate [Proventil Hfa] 2 puff INHALATION RT-QID PRN 06/11/16 01/08/24 History Cyanocobalamin (Vitamin B-12) 1,000 mcg PO DAILY 03/11/19 01/08/24 History [Vitamin B-12] metFORMIN HCL [Glucophage] 500 mg PO BID 03/11/19 01/08/24 History Ferrous Sulfate [Iron (65 MG 325 mg PO DAILY #1 03/14/19 01/08/24 Rx Elemental)] Sodium Chloride [[place]] 1 spray EA NOSTRIL QID PRN 03/14/19 01/08/24 History Fluticasone Propion/Salmeterol 1 puff INHALATION RT-BID 01/08/24 01/08/24 History [Wixela 500-50 Inhub] Furosemide [Lasix] 40 mg PO DAILY 01/08/24 01/08/24 History Petrolatum, White [Aquaphor] 1 applic TOPICAL DAILY 01/08/24 01/08/24 History Spironolactone [Aldactone] 100 mg PO DAILY 01/08/24 01/08/24 History Tiotropium 2.5 Mcg/Puff [Spiriva 2 puff INHALATION RT-DAILY 01/08/24 01/08/24 History Respimat 2.5 Mcg] Triamcinolone 0.1% Ointment 1 applic TOPICAL BID 01/08/24 01/08/24 History [Kenalog 0.1% Ointment] carvediloL [Coreg] 12.5 mg PO DAILY 01/08/24 01/08/24 History Allergies Allergy/AdvReac Type Severity Reaction Status Date / Time Penicillins Allergy Rash/Hives Verified 01/08/24 09:15 atorvastatin [From Lipitor] AdvReac Muscle pain Verified 01/08/24 09:28 pravastatin AdvReac Muscle pain Verified 01/08/24 09:28 simvastatin [From Zocor] AdvReac Muscle pain Verified 01/08/24 09:28 Physical Exam Vitals: Vital Signs Temp Pulse Pulse Resp BP BP Pulse Ox 01/08/24 12:07 74 01/08/24 11:59 72 01/08/24 11:43 69 18 113/62 98 01/08/24 11:30 72 16 101/57 97 01/08/24 11:16 72 16 111/56 97 01/08/24 11:03 74 16 102/57 98 01/08/24 10:22 72 16 122/56 97 01/08/24 08:54 78 01/08/24 08:42 74 01/08/24 06:15 61 19 118/57 99 01/08/24 05:28 97.8 F 68 19 110/62 98 01/08/24 04:30 66 18 109/63 98 01/08/24 00:00 97.5 F L 76 20 117/72 99 01/07/24 22:29 97.8 F 60 20 111/65 99 01/07/24 22:12 70 01/07/24 22:06 63 01/07/24 16:15 97.5 F L 63 28 H 110/55 96 Intake and Output 01/07/24 01/08/24 01/08/24 22:59 06:59 14:59 Other: Weight 72.575 kg GENERAL EXAM: Alert, pleasant 83-year-old male, on 2 L nasal cannula, fairly co mfortable in no apparent distress. HEAD: Normocephalic. EYES: Normal reaction of pupils, equal size. NOSE: Clear with pink turbinates. THROAT: No erythema or exudates. NECK: No masses, no JVD. CHEST: No chest wall deformity. LUNGS: Equal air entry with faint crackles in the posterior bases. CVS: S1 and S2 normal with no audible murmur, regular rhythm. ABDOMEN: Distention, positive fluid wave, normal bowel sounds, no guarding or rigidity. SPINE: No scoliosis or deformity SKIN: No rashes CENTRAL NERVOUS SYSTEM: No focal deficits, tone is normal in all 4 extremities. EXTREMITIES: There is no peripheral edema. No clubbing, no cyanosis. Peripheral pulses are intact. Results - Laboratory Findings CBC and BMP: 01/08/24 04:57 01/08/24 04:57 PT/INR, D-dimer PT 12.1 sec (10.0-12.5) 01/07/24 16:31 INR 1.1 (<1.2) 01/07/24 16:31 Abnormal lab findings: Abnormal Labs 01/07/24 01/07/24 01/08/24 16:31 16:31 04:57 WBC 2.2 L 1.8 L RBC 3.68 L 3.53 L Hgb 10.5 L 9.9 L Hct 33.1 L 32.4 L MCHC 30.5 L RDW 16.9 H 16.6 H Plt Count 76 L 58 L Lymphocytes # 0.3 L 0.3 L Chloride 111 H Glucose 138 H Calcium 7.3 L Alkaline Phosphatase 135 H Total Protein 4.8 L Albumin 2.4 L 01/08/24 04:57 WBC RBC Hgb Hct MCHC RDW Plt Count Lymphocytes # Chloride 112 H Glucose 139 H Calcium 7.4 L Alkaline Phosphatase 135 H Total Protein 4.8 L Albumin 2.5 L - Diagnostic Findings Chest x-ray: image reviewed Assessment and Plan Assessment: Acute hypoxic respiratory failure secondary to small bilateral effusions and abdominal ascites Atypical chest pain, acute coronary syndrome ruled out Abdominal distention in a patient with ascites and previous paracentesis x 2 History of liver disease Pancytopenia secondary to above History of lung and liver nodules being [facility] up [facility] Former smoker Former heavy alcohol use Hyperlipidemia Diabetes mellitus Chronic obstructive pulmonary disease, maintained on Wixela, Spiriva and albuterol Plan: The patient was seen and evaluated Chest x-ray, labs and medications reviewed Abdominal ultrasound pending May benefit from a paracentesis if ascites is significant Echocardiogram pending Continue bronchodilators Titrate the FiO2 as tolerated We will continue to follow and make further recommendations based on his clinical status Plan to keep his appointments through the [facility] in regards to liver/lung biopsy I have personally seen and examined the patient, performed the documentation and the assessment and plan as written. Number of minutes spent on the visit: 20 Dictation was produced using [employer] dictation software. Please excuse any grammatical, word or spelling errors.
--- NOTE | 2024-01-08 13:16 | US ---
EXAMINATION TYPE: US paracentesis abd w/image DATE OF EXAM: 01/08/2024 CLINICAL HISTORY: 83-year-old male ascites, distention, patient being worked up for possible lung an d liver cancer. The procedure was discussed with the patient. The risks, complications, benefits, and alternatives we re discussed and any questions were answered. Informed consent was obtained. The patient was placed s upine on the ultrasound table and prepped and draped in the usual sterile fashion. All elements of maximal barrier technique were utilized. Ultrasound was utilized to determine the precise skin entry site along the right lower quadrant. A 5 Malaysian One-Step catheter and trocar technique was utilized to access the ascites collection under direct ultrasound guidance. An initial sample of fluid was collected in a 60 mL syringe. This was labeled and sent for laboratory analysis. Approximately 4.4 liters of clear, yellow-colored fluid was removed. Catheter was removed, hemostasis obtained, and a dressing placed. The patient was stable throughout the procedure and remained stable upon discharge from Department of Radiology. IMPRESSION: Successful diagnostic and therapeutic paracentesis under ultrasound guidance. 4.4 L of fluid removed. Laboratory analysis pending. [facility], , 01/08/2024 1:13 PM
--- NOTE | 2024-01-08 18:24 | P.PN ---
Subjective Progress Note Date: 01/08/24 Patient is a 83-year-old male with PMH of COPD, liver failure (unknown reason) with ascites, and possible lung malignancy with metastasis to the liver who presents to the emergency room with complaints of chest pain and shortness of breath. Patient notes that earlier today he had a episode of sharp substernal chest discomfort, lasting for 3 minutes and then resolving spontaneously. Patient also reports feeling short of breath over the past 3 days despite use of his inhalers. Denies experiencing fever, chills, cough, nausea, vomiting, abdominal pain, diarrhea. Denies diaphoresis or palpitations. Patient reports that he has been following with [facility] for his liver failure and is scheduled to undergo multiple biopsies of both his liver and lung over the next few coming weeks. Chest x-ray the emergency room revealed findings of congestive heart failure with EKG showing indeterminate rhythm at 64 bpm. Laboratory evaluation revealed WBC count 2.2, hemoglobin 10.5, platelet count 76, chloride 111, glucose 138, calcium 7.3, troponin less than 0.012 with albumin 2.4. 01/07 Patient was seen and examined. Feeling better. Wants to go home. Underwent paracentesis with 4.35L drained. CBC, CMP significant WBC 1.8, RBC 3.53, Hg 9.9, Hct 32.4, Plt 58, Cl 112, glu 139, Ca 7.4, alk phos 135, alb 2.5. General: non toxic, no distress, appears at stated age Derm: warm, dry Head: atraumatic, normocephalic, symmetric Eyes: EOMI, no lid lag, anicteric sclera Mouth: no lip lesion, mucus membranes moist Cardiovascular: S1S2 reg, no murmur Lungs: Clear to auscultation bilaterally, no rhonchi, no rales , no accessory muscle use Abd: Non distended. Non tender to palpation. Soft. Ext: no gross muscle atrophy, no edema, no contractures Neuro: no focal neuro deficits Psych: Alert, oriented, appropriate affect Based on my assessment of this patient, this patient meets a high complexity level of care. Acute COPD exacerbation Fluid overload, secondary to cirrhosis versus congestive heart failure Pancytopenia, at baseline Chest pain, atypical Troponins trended and ACS ruled out. Echo pending. Status post paracentesis with 4.35L drained. Plans to monitor overnight and discharge in the AM if feeling well. CODE STATUS: FULL CODE. DVT Prophylaxis: SCD GI Prophylaxis: Designated medical POA if patient is not able to make medical decisions for themselves: I have reviewed the following marine consultant notes: Cardio, Pulmonary. I have reviewed the results of the following tests: As above. I have ordered the following tests: I have discussed the care of this patient with the following independent historian: I have independently interpreted the following test below: I have discussed the management of this patient with the following physician: Objective - Vital Signs Vital signs: Vital Signs Temp 97.8 F 01/08/24 05:28 Pulse 75 01/08/24 18:05 Resp 20 01/08/24 18:05 BP 104/57 01/08/24 18:05 Pulse Ox 98 01/08/24 18:05 FiO2 Intake & Output 01/07/24 01/08/24 01/08/24 18:59 06:59 18:59 Weight 72.575 kg - Labs CBC & Chem 7: 01/08/24 04:57 01/08/24 04:57 Labs: Abnormal Lab Results - Last 24 Hours (Table) 01/08/24 01/08/24 Range/Units 04:57 04:57 WBC 1.8 L (3.8-10.6) k/uL RBC 3.53 L (4.30-5.90) m/uL Hgb 9.9 L (13.0-17.5) gm/dL Hct 32.4 L (39.0-53.0) % MCHC 30.5 L (31.0-37.0) g/dL RDW 16.6 H (11.5-15.5) % Plt Count 58 L (150-450) k/uL Lymphocytes # 0.3 L (1.0-4.8) k/uL Chloride 112 H (98-107) mmol/L Glucose 139 H (74-99) mg/dL Calcium 7.4 L (8.4-10.2) mg/dL Alkaline Phosphatase 135 H (38-126) U/L Total Protein 4.8 L (6.3-8.2) g/dL Albumin 2.5 L (3.5-5.0) g/dL
[2024-01-09 07:45] VITALS: RESP 16; TEMP 97.8
[2024-01-09 08:51] VITALS: BP 104/48
[2024-01-09] MEDS: SPIRONOLACTONE 25 MG TAB PO SCH (08:55)
[2024-01-09] MEDS: FUROSEMIDE 40 MG TAB PO SCH (08:55)
--- NOTE | 2024-01-09 10:30 | XR ---
EXAMINATION TYPE: XR chest 1V portable DATE OF EXAM: 01/09/2024 9:54 AM CLINICAL INDICATION: Male, 83 years old with history of CHF; COMPARISON: Chest radiographs from TECHNIQUE: XR chest 1V portable Frontal view of the chest. FINDINGS: Lungs/Pleura: No evidence of focal consolidation or pneumothorax. Blunting of the costophrenic angles is present. Pulmonary vascularity: Pulmonary vascular congestion. Heart/mediastinum: Cardiomediastinal silhouette is enlarged. Musculoskeletal: No acute osseous pathology. Other findings: None Lines/Tubes: IMPRESSION: Cardiomegaly, pulmonary vascular congestion and bilateral pleural effusions. Correlate with BNP for c ongestive heart failure. [facility], , 01/09/2024 10:28 AM
[2024-01-09 11:51] VITALS: PULSE 76
--- NOTE | 2024-01-09 12:38 | CA ---
Transthoracic Echo Report Name: Maurice Delgado Age: 83 Gender: M : 1940 Exam Date: 01/08/2024 13:59 Exam Location: [facility] Ht (in): 68 Wt (lb): 160 Ordering Physician: Lauren Shelby Attending/Referring Phys: [id number], Afsaneh Segmental Wall Installer Sydnee Gutiérrez RDCS Procedure CPT: Indications: LV function, SOB, CP Cardiac Hx: Technical Quality: Contrast 1: Total Dose (mL): Contrast 2: Total Dose (mL): MEASUREMENTS (Male / Female) Normal Values 2D ECHO LV Diastolic Diameter PLAX 4.9 cm 4.2 - 5.9 / 3.9 - 5.3 cm LV Systolic Diameter PLAX 2.9 cm IVS Diastolic Thickness 1.1 cm 0.6 - 1.0 / 0.6 - 0.9 cm LVPW Diastolic Thickness 1.2 cm 0.6 - 1.0 / 0.6 - 0.9 cm LV Relative Wall Thickness 0.5 RV Internal Dim ED PLAX 4.7 cm LA Volume 53.7 cm??? 18 - 58 / 22 - 52 cm??? LA Volume Index 28.7 cm???/m??? 16 - 28 cm???/m??? M-MODE Aortic Root Diameter MM 3.4 cm LA Systolic Diameter MM 4.8 cm LA Ao Ratio MM 1.4 AV Cusp Separation MM 2.1 cm DOPPLER AV Peak Velocity 189.0 cm/s AV Peak Gradient 14.3 mmHg AV Mean Velocity 126.4 cm/s AV Mean Gradient 7.3 mmHg AV Velocity Time Integral 35.6 cm LVOT Peak Velocity 166.8 cm/s LVOT Peak Gradient 11.1 mmHg LVOT Velocity Time Integral 34.5 cm MV Peak Velocity 114.5 cm/s MV Peak Gradient 5.2 mmHg MV Mean Velocity 75.3 cm/s MV Mean Gradient 2.5 mmHg MV Velocity Time Integral 31.5 cm MV Area PHT 2.7 cm??? Mitral E Point Velocity 88.9 cm/s Mitral A Point Velocity 114.5 cm/s Mitral E to A Ratio 0.8 MV Deceleration Time 284.0 ms MV E' Velocity 5.9 cm/s Mitral E to MV E' Ratio 15.0 TR Peak Velocity 232.8 cm/s TR Peak Gradient 21.7 mmHg Right Ventricular Systolic Press 26.2 mmHg FINDINGS Left Ventricle Left ventricular cavity size normal. Left ventricular wall thickness normal. Normal left ventricular systolic function with no obvious regional wall motion abnormalities. Left ventricular ejection fraction is estimated at 50-55 %. Right Ventricle Normal right ventricular size and function. Right ventricular systolic pressure within normal limits. Right Atrium Normal right atrial size. Left Atrium Normal left atrial size. Mitral Valve Structurally normal mitral valve. Mitral valve thickened. Mild mitral annular calcification. Mild mitral regurgitation. Aortic Valve Trileaflet aortic valve. No aortic valve stenosis or regurgitation. Aortic valve sclerosis. Tricuspid Valve Structurally normal tricuspid valve. Mild tricuspid regurgitation. Pulmonic Valve Structurally normal pulmonic valve. Pericardium Minimal pericardial effusion (normal variant). Aorta Aortic annulus normal. CONCLUSIONS Indication: Chest pain shortness of breath Impression Preserved LV systolic function Normal RV size and function Previewed by: Dr. Konstantin Carias MD (Electronically Signed) Final Date: 09 January 2024 12:37
--- NOTE | 2024-01-09 12:39 | P.PN ---
Subjective Progress Note Date: 01/09/24 This is Jamel Khan NP, I'm dictating on behalf of Dr. Carias's H&P and A&P. Patient was interviewed and examined. Patient is a pleasant 83-year-old male who presented to the hospital with shortness of breath. Patient reports that he is feeling okay today. He states that his shortness of breath is improved since yesterday. He is no longer experiencing any chest discomfort. Echocardiogram shows normal RV with normal LV size and function. GENERAL: Well-appearing, well-nourished and in no acute distress. NECK: Supple without JVD or thyromegaly. LUNGS: Breath sounds clear to auscultation bilaterally. Respiration equal and unlabored. No wheezes, rales or rhonchi. HEART: Regular rate and rhythm without murmurs, rubs or gallops. S1 and S2 heard. EXTREMITIES: Normal range of motion, no edema. No clubbing or cyanosis. Peripheral pulses intact and strong. VITALS: Temp 97.8, pulse 62, respirations 16, blood pressure 104/48, O2 saturation 94% on 2 L TELEMETRY: Sinus mechanism LABS: No new labs since 01/08/2024 IMPRESSION: 1. Shortness of breath, improved 2. Liver cirrhosis 3. Fluid overload, secondary to liver disease, no evidence of congestive heart failure 4. Hypertension 5. Diabetes 6. Reported liver and lung mass, pending biopsy 7. Pancytopenia 8. History of alcohol abuse PLAN: 2D echo demonstrates normal RV with normal LV size and function. Continue home cardiac medications. Acute coronary event has been ruled out. No further recommendations from a cardiology standpoint. Thank you for allowing us to participate in the care of this patient. Objective - Vital Signs Vital signs: Vital Signs Temp 97.8 F 01/09/24 07:26 Pulse 76 01/09/24 11:50 Resp 16 01/09/24 07:26 BP 104/48 01/09/24 08:51 Pulse Ox 97 01/09/24 07:26 FiO2 Intake & Output 01/08/24 01/09/24 01/09/24 18:59 06:59 18:59 Output Total 300 Balance -300 Weight 72.575 kg Output: Urine 300 Other: Voiding Method Toilet Urinal # Voids 1 - Labs CBC & Chem 7: 01/08/24 04:57 01/08/24 04:57
--- NOTE | 2024-01-09 12:57 | P.PN ---
Subjective Progress Note Date: 01/09/24 This is an 83-year-old male patient with a known history of hyperlipidemia, diabetes mellitus, chronic obstructive pulmonary disease, former smoker, former heavy alcohol use who follows at the [facility] for his primary care needs. He also has a history of liver disease and had undergone paracentesis x 2 in the past. He also is noted to have a lung nodule and liver nodule that is being followed. He is scheduled to have further testing on January 12 at [facility] [place] and was planning for possible liver biopsy on January 20, 2024. He presented here to the emergency room yesterday with complaints of chest tightness and shortness of breath. He states he was outside working and may have overdid it prior to his symptoms. He denies any fever or chills. No cough or congestion. No hemoptysis. Chest x-ray reveals cardiomegaly with pulmonary vascular congestion and small bilateral pleural effusions. Ultrasound of the abdomen is revealing ascites. White count 1.8. Hemoglobin 9.9. Platelets 58,000. Sodium 137. Potassium 4.7. Bicarb 22. BUN 13. Creatinine 0.81. Glucose 139. AST 35. ALT 18. Alk phos 135. Troponins are negative x 3. proBNP 379. The patient is seen in consultation in the emergency department. He is currently sitting up in a stretcher. Awake and alert in no acute distress. He is somewhat dyspneic with conversation. Dyspneic with minimal exertion. He is maintaining O2 saturations in the 90s on 2 L/min per nasal cannula. He is afebrile. Hemodynamically stable. The patient is seen today January 09, 2024 in follow-up on the regular medical floor. He is currently resting in bed. Awake and alert in no acute distress. He is maintaining good O2 saturations in the 90s on room air. Chest x-ray reveals cardiomegaly and mild pulmonary vascular congestion. He did undergo a therapeutic paracentesis yesterday with 4.4 L of fluid removed. He remains on oral diuretics. Continued on bronchodilators and steroids. Breathing quite a bit better today compared to yesterday. Echocardiogram revealed preserved left ventricular systolic function. Objective - Vital Signs Vital signs: Vital Signs Temp 97.8 F 01/09/24 07:26 Pulse 76 01/09/24 11:50 Resp 16 01/09/24 07:26 BP 104/48 10/26/24 08:51 Pulse Ox 92 L 01/09/24 12:34 FiO2 Intake & Output 01/08/24 01/09/24 01/09/24 18:59 06:59 18:59 Output Total 300 Balance -300 Weight 72.575 kg Output: Urine 300 Other: Voiding Method Toilet Urinal # Voids 1 - Exam GENERAL EXAM: Alert, 83-year-old male, on room air, comfortable in no apparent distress. HEAD: Normocephalic. EYES: Normal reaction of pupils, equal size. NOSE: Clear with pink turbinates. THROAT: No erythema or exudates. NECK: No masses, no JVD. CHEST: No chest wall deformity. LUNGS: Equal air entry with faint crackles in the posterior bases. CVS: S1 and S2 normal with no audible murmur, regular rhythm. ABDOMEN: Normal bowel sounds, no guarding or rigidity. SPINE: No scoliosis or deformity SKIN: No rashes CENTRAL NERVOUS SYSTEM: No focal deficits, tone is normal in all 4 extremities. EXTREMITIES: There is no peripheral edema. No clubbing, no cyanosis. Peripheral pulses are intact. - Labs CBC & Chem 7: 01/08/24 04:57 01/08/24 04:57 Assessment and Plan Assessment: Acute hypoxic respiratory failure secondary to small bilateral effusions and abdominal ascites. Status post paracentesis on 01/08/2024 with 4.4 L of fluid removed. Recovered and on room air Atypical chest pain, acute coronary syndrome ruled out Abdominal distention in a patient with ascites and previous paracentesis x 2 History of liver disease Pancytopenia secondary to above History of lung and liver nodules being worked up at [facility] Former smoker Former heavy alcohol use Hyperlipidemia Diabetes mellitus Chronic obstructive pulmonary disease, maintained on Wixela, Spiriva and albuterol Plan: The patient was seen and evaluated Chest x-ray, echocardiogram, labs and medications reviewed Paracentesis performed yesterday Improved and on room air For discharge from the pulmonary standpoint Plans to keep his appointments through the [facility] in regards to liver/lung biopsy I have personally seen and examined the patient, performed the documentation and the assessment and plan as written. Number of minutes spent on the visit: 10 Dictation was produced using [employer] dictation software. Please excuse any grammatical, word or spelling errors.
--- NOTE | 2024-01-09 13:08 | P.DS ---
Providers Date of admission: 01/07/24 21:22 Expected date of discharge: 01/09/24 Attending physician: Sara Arce MD Consults: 01/07/24 21:21 Consult Physician Routine Consulting Provider: Nelia Perez Consult Reason/Comments: cp Do you want consulting provider notified?: Yes 01/07/24 23:18 Consult Physician Urgent Consulting Provider: Salvador Collado Consult Reason/Comments: no Do you want consulting provider notified?: Yes Consult Physician Urgent Consulting Provider: Tona Santiago Consult Reason/Comments: Cirrhosis, ascites Do you want consulting provider notified?: Yes Primary care physician: [facility] Course: Patient is a 83-year-old male with PMH of COPD, liver failure (unknown reason) with ascites, and possible lung malignancy with metastasis to the liver who presents to the emergency room with complaints of chest pain and shortness of breath. Patient notes that earlier today he had a episode of sharp substernal chest discomfort, lasting for 3 minutes and then resolving spontaneously. Patient also reports feeling short of breath over the past 3 days despite use of his inhalers. Denies experiencing fever, chills, cough, nausea, vomiting, abdominal pain, diarrhea. Denies diaphoresis or palpitations. Patient reports that he has been following with [facility] for his liver failure and is scheduled to undergo multiple biopsies of both his liver and lung over the next few coming weeks. Chest x-ray the emergency room revealed findings of congestive heart failure with EKG showing indeterminate rhythm at 64 bpm. Laboratory evaluation revealed WBC count 2.2, hemoglobin 10.5, platelet count 76, chloride 111, glucose 138, calcium 7.3, troponin less than 0.012 x 3 with albumin 2.4. 01/07 Patient was seen and examined. Feeling better. Wants to go home. Underwent paracentesis with 4.35L drained. CBC, CMP significant WBC 1.8, RBC 3.53, Hg 9.9, Hct 32.4, Plt 58, Cl 112, glu 139, Ca 7.4, alk phos 135, alb 2.5. 01/08 Patient was seen and examined. No acute events overnight. Feeling well wants to go home. Home O2 eval passed per RN. Echo showed EF 50-55%. CXR shows pulmonary vascular congestion. Pulmonary has cleared the patient for discharge. Patient will be discharged home today. Advised to resume home medications. Prescription for 4 days of Prednisone, ASA and Lipitor sent to pharmacy. Follow up with PCP within 1-2 days and [facility] for further workup of ascites/malignancy. Advised 1.5L fluid restriction and salt restriction diet. General: non toxic, no distress, appears at stated age Derm: warm, dry Head: atraumatic, normocephalic, symmetric Eyes: EOMI, no lid lag, anicteric sclera Mouth: no lip lesion, mucus membranes moist Cardiovascular: S1S2 reg, no murmur Lungs: Clear to auscultation bilaterally, no rhonchi, no rales , no accessory muscle use Abd: Non distended. Non tender to palpation. Soft. Ext: no gross muscle atrophy, no edema, no contractures Neuro: no focal neuro deficits Psych: Alert, oriented, appropriate affect Discharge Diagnosis: Acute COPD exacerbation Fluid overload secondary to cirrhosis Pancytopenia likely due to possible malignancy Chest pain, ACS ruled out This complex discharge took 35 minutes to complete. Patient Condition at Discharge: Stable Plan - Discharge Summary Discharge Rx Participant: Yes New Discharge Prescriptions: New Aspirin 81 mg PO DAILY #30 tab predniSONE [Deltasone] 40 mg PO DAILY #8 tab Atorvastatin [Lipitor] 80 mg PO HS #30 tab Continue Albuterol Sulfate [Proventil Hfa] 2 puff INHALATION RT-QID PRN PRN Reason: Shortness Of Breath Cyanocobalamin (Vitamin B-12) [Vitamin B-12] 1,000 mcg PO DAILY metFORMIN HCL [Glucophage] 500 mg PO BID Ferrous Sulfate [Iron (65 MG Elemental)] 325 mg PO DAILY #1 Sodium Chloride [[place]] 1 spray EA NOSTRIL QID PRN PRN Reason: Allergy Symptoms Tiotropium 2.5 Mcg/Puff [Spiriva Respimat 2.5 Mcg] 2 puff INHALATION RT-DAILY Spironolactone [Aldactone] 100 mg PO DAILY Fluticasone Propion/Salmeterol [Wixela 500-50 Inhub] 1 puff INHALATION RT-BID Triamcinolone 0.1% Ointment [Kenalog 0.1% Ointment] 1 applic TOPICAL BID Petrolatum, White [Aquaphor] 1 applic TOPICAL DAILY carvediloL [Coreg] 12.5 mg PO DAILY Furosemide [Lasix] 40 mg PO DAILY Discharge Medication List Albuterol Sulfate [Proventil Hfa] 2 puff INHALATION RT-QID PRN 06/11/16 [History] Cyanocobalamin (Vitamin B-12) [Vitamin B-12] 1,000 mcg PO DAILY 03/11/19 [History] metFORMIN HCL [Glucophage] 500 mg PO BID 03/11/19 [History] Ferrous Sulfate [Iron (65 MG Elemental)] 325 mg PO DAILY #1 03/14/19 [Rx] Sodium Chloride [[place]] 1 spray EA NOSTRIL QID PRN 03/14/19 [History] Fluticasone Propion/Salmeterol [Wixela 500-50 Inhub] 1 puff INHALATION RT-BID 01/08/24 [History] Furosemide [Lasix] 40 mg PO DAILY 01/08/24 [History] Petrolatum, White [Aquaphor] 1 applic TOPICAL DAILY 01/08/24 [History] Spironolactone [Aldactone] 100 mg PO DAILY 01/08/24 [History] Tiotropium 2.5 Mcg/Puff [Spiriva Respimat 2.5 Mcg] 2 puff INHALATION RT-DAILY 01/08/24 [History] Triamcinolone 0.1% Ointment [Kenalog 0.1% Ointment] 1 applic TOPICAL BID 01/08/24 [History] carvediloL [Coreg] 12.5 mg PO DAILY 01/08/24 [History] Aspirin 81 mg PO DAILY #30 tab 01/09/24 [Rx] Atorvastatin [Lipitor] 80 mg PO HS #30 tab 01/09/24 [Rx] predniSONE [Deltasone] 40 mg PO DAILY #8 tab 01/09/24 [Rx] Follow up Appointment(s)/Referral(s): [facility],Clinic [Primary Care Provider] - 1-2 days (Office is closed at time of discharge. Please call for follow-up appointment.) Patient Instructions/Handouts: Ascites (DC) Activity/Diet/Wound Care/Special Instructions: [facility] for [facility] of your [facility]. Diet: 1.5L fluid restriction, salt restriction Discharge Disposition: HOME SELF-CARE
== END 2024-01-09 13:12 | disposition home or self-care (01) ==
LOC: EC 15:52 → 6NMEDSUR 21:22 → 4SSUR 01-08 14:11
PROVIDERS: ADMIT Internal Medicine; ATTEND Internal Medicine
DX: J44.1 Chronic obstructive pulmonary disease with (acute) exacerbation (principal); J96.01 Acute respiratory failure with hypoxia; K70.31 Alcoholic cirrhosis of liver with ascites; D61.818 Other pancytopenia; E11.9 Type 2 diabetes mellitus without complications; I50.9 Heart failure, unspecified; I11.0 Hypertensive heart disease with heart failure; J90 Pleural effusion, not elsewhere classified; F10.11 Alcohol abuse, in remission; R91.1 Solitary pulmonary nodule; Z79.84 Long term (current) use of oral hypoglycemic drugs; Z79.51 Long term (current) use of inhaled steroids; Z79.82 Long term (current) use of aspirin; Z79.52 Long term (current) use of systemic steroids; Z79.899 Other long term (current) drug therapy; Z87.891 Personal history of nicotine dependence; Z88.0 Allergy status to penicillin; Z88.8 Allergy status to other drugs, medicaments and biological substances
CPT/HCPCS: 96376 ×2; 96374; 99285; 36415; 94640 ×4; 93005; 93306; 88108; 88305; 83880; 80053 ×2; 83605; 83735 ×2; 84100; 84484 ×2; 85025 ×2; 85610; 85730; 88342; 88341; 71045; 71046; 76705; 49083; G0378 ×6; J2919 ×3

== ENCOUNTER 2024-02-09 10:17 | Emergency (ER) | payer OTHER ==
--- NOTE | 2024-02-09 10:48 | ED ---
General Adult HPI - General Chief complaint: Recheck/Abnormal Lab/Rx Stated complaint: high potassium Time Seen by Provider: 02/09/24 10:30 Source: patient, RN notes reviewed, old records reviewed Mode of arrival: ambulatory Limitations: no limitations - History of Present Illness Initial comments: 83-year-old male sent from ID for elevated potassium. Patient had lab draw performed indicating a potassium of 7.8. The patient himself has no complaints. He states he has been eating and drinking normally. He has been urinating normally. He did have 1 episode of vomiting. - Related Data Home Medications Medication Instructions Recorded Confirmed Albuterol Sulfate [Proventil Hfa] 2 puff INHALATION RT-QID PRN 06/11/16 02/09/24 Cyanocobalamin (Vitamin B-12) 1,000 mcg PO DAILY 03/11/19 02/09/24 [Vitamin B-12] metFORMIN HCL [Glucophage] 500 mg PO BID 03/11/19 02/09/24 Fluticasone Propion/Salmeterol 1 puff INHALATION RT-BID 01/08/24 02/09/24 [Wixela 500-50 Inhub] Furosemide [Lasix] 40 mg PO DAILY 01/08/24 02/09/24 Petrolatum, White [Aquaphor] 1 applic TOPICAL DAILY 01/08/24 02/09/24 Spironolactone [Aldactone] 100 mg PO DAILY 01/08/24 02/09/24 Tiotropium 2.5 Mcg/Puff [Spiriva 2 puff INHALATION RT-DAILY 01/08/24 02/09/24 Respimat 2.5 Mcg] Triamcinolone 0.1% Ointment 1 applic TOPICAL BID 01/08/24 02/09/24 [Kenalog 0.1% Ointment] carvediloL [Coreg] 12.5 mg PO DAILY 01/08/24 02/09/24 Docusate [Colace] 100 mg PO BID 02/09/24 02/09/24 ursodioL [Ursodiol] 600 mg PO BID 02/09/24 02/09/24 Previous Rx's Medication Instructions Recorded Ferrous Sulfate [Iron (65 MG 325 mg PO DAILY #1 03/14/19 Elemental)] Allergies Allergy/AdvReac Type Severity Reaction Status Date / Time Penicillins Allergy Rash/Hives Verified 02/09/24 11:32 atorvastatin [From Lipitor] AdvReac Muscle pain Verified 02/09/24 11:32 pravastatin AdvReac Muscle pain Verified 02/09/24 11:32 simvastatin [From Zocor] AdvReac Muscle pain Verified 02/09/24 11:32 Review of Systems ROS Statement: Those systems with pertinent positive or pertinent negative responses have been documented in the HPI. ROS Other: All systems not noted in ROS Statement are negative. Past Medical History Past Medical History: COPD, Liver Disease Additional Past Medical History / Comment(s): back pain, parascentesis, lung tumor waiting for biopsy, spots on liver History of Any Multi-Drug Resistant Organisms: None Reported Past Surgical History: Ear Surgery, Tonsillectomy Past Anesthesia/Blood Transfusion Reactions: No Reported Reaction Past Psychological History: No Psychological Hx Reported Smoking Status: Former smoker Past Alcohol Use History: None Reported Past Drug Use History: None Reported - Past Family History Father History Unknown: Yes Family Medical History: Hyperlipidemia General Exam Limitations: no limitations General appearance: alert, in no apparent distress Head exam: Present: atraumatic, normocephalic Eye exam: Present: normal appearance, PERRL ENT exam: Present: normal exam Neck exam: Present: normal inspection. Absent: tenderness, meningismus Respiratory exam: Present: normal lung sounds bilaterally. Absent: respiratory distress, wheezes Cardiovascular Exam: Present: regular rate, normal rhythm GI/Abdominal exam: Present: soft. Absent: distended, tenderness, guarding Extremities exam: Present: normal inspection, normal capillary refill Neurological exam: Present: alert, oriented X3, CN II-XII intact. Absent: motor sensory deficit Psychiatric exam: Present: normal affect, normal mood Skin exam: Present: warm, dry, intact. 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 sent in by a medical professional or institution (, PA, PSYCHIATRIC REGISTERED NURSE, urgent care, hospital, or [facility]...) When possible be specific @ -No Did you speak to anyone other than the patient for history (EMS, parent, family, police, friend...)? What history was obtained from this source @ -No Did you review nursing and triage notes (agree or disagree)? Why? @ -I reviewed and agree with nursing and triage notes Were old charts reviewed (outside hosp., previous admission, EMS record, old EKG, old radiological studies, urgent care reports/EKG's, [facility] records)? Report findings @ -No old charts were reviewed Differential Diagnosis: renal failure, hyperkalemia, electrolyte abnormality EKG interpreted by me (3pts min.). @Sinus rhythm rate of 70, right bundle branch block, AR interval 205, QRS duration 134, QTc 441 X-rays interpreted by me (1pt min.). @ -None done CT interpreted by me (1pt min.). @ -None done U/S interpreted by me (1pt. min.). @ -None done What testing was considered but not performed or refused? (CT, X-rays, U/S, labs)? Why? @ -None What meds were considered but not given or refused? Why? @ -None Did you discuss the management of the patient with other professionals (professionals i.e. , PA, PSYCHIATRIC REGISTERED NURSE, lab, RT, psych nurse, social science instructor, rolloff driver, teacher, police officer, case filler)? Give summary @ -No Was smoking cessation discussed for >3mins.? @ -No Was critical care preformed (if so, how long)? @ -No Were there social determinants of health that impacted care today? How? (Homelessness, low income, unemployed, alcoholism, drug addiction, trans portation, low edu. Level, literacy, decrease access to med. care, [facility], rehab)? @ -No Was there de-escalation of care discussed even if they declined (Discuss DNR or withdrawal of care, Hospice)? DNR status @ -No What co-morbidities impacted this encounter? (DM, HTN, Smoking, COPD, CAD, Cancer, CVA, ARF, Chemo, Hep., AIDS, mental health diagnosis, sleep apnea, morbid obesity)? @ -None Was patient admitted / discharged? Hospital course, mention meds given and route, prescriptions, significant lab abnormalities, going to OR and other pertinent info. @ -83-year-old male presenting with hyperkalemia from outpatient setting. This level is repeated and is normal at 3.7. Normal magnesium, normal kidney function. Patient is stable for discharge. Undiagnosed new problem with uncertain prognosis? @ -No Drug Therapy requiring intensive monitoring for toxicity (Heparin, Nitro, Insulin, Cardizem)? @ -No Were any procedures done? @ -No Diagnosis/symptom? @ -[Lab abnormality Acute, or Chronic, or Acute on Chronic? @ -Acute Uncomplicated (without systemic symptoms) or Complicated (systemic symptoms)? @ -Default Side effects of treatment? @ -No Exacerbation, Progression, or Severe Exacerbation? @ -No Poses a threat to life or bodily function? How? (Chest pain, [place], [place], pneumonia, PE, COPD, DKA, ARF, appy, cholecystitis, CVA, Diverticulitis, Homicidal, Suicidal, threat to staff... and all critical care pts) @ -No - Lab Data Result diagrams: 02/09/24 10:36 02/09/24 10:36 Lab Results 02/09/24 02/09/24 02/09/24 Range/Units 10:36 10:36 10:50 WBC 4.1 (3.8-10.6) k/uL RBC 3.93 L (4.30-5.90) m/uL Hgb 11.1 L (13.0-17.5) gm/dL Hct 35.0 L (39.0-53.0) % MCV 89.1 (80.0-100.0) fL MCH 28.2 (25.0-35.0) pg MCHC 31.6 (31.0-37.0) g/dL RDW 17.2 H (11.5-15.5) % Plt Count 77 L (150-450) k/uL MPV 8.1 Neutrophils % 71 % Lymphocytes % 14 % Monocytes % 7 % Eosinophils % 5 % Basophils % 0 % Neutrophils # 2.9 (1.3-7.7) k/uL Lymphocytes # 0.6 L (1.0-4.8) k/uL Monocytes # 0.3 (0-1.0) k/uL Eosinophils # 0.2 (0-0.7) k/uL Basophils # 0.0 (0-0.2) k/uL Manual Slide Review Performed Hypochromasia Slight Anisocytosis Slight Sodium 135 L (137-145) mmol/L Potassium 3.7 (3.5-5.1) mmol/L Chloride 103 (98-107) mmol/L Carbon Dioxide 30 (22-30) mmol/L Anion Gap 2 mmol/L BUN 16 (9-20) mg/dL Creatinine 0.88 (0.66-1.25) mg/dL Est GFR (CKD-EPI)AfAm >90 (>60 ml/min/1.73 sqM) Est GFR (CKD-EPI)NonAf 79 (>60 ml/min/1.73 sqM) Glucose 122 H (74-99) mg/dL POC Glucose (mg/dL) 149 H (70-110) mg/dL POC Glu [employer] Specialist ID Luciana Thornton Calcium 8.8 (8.4-10.2) mg/dL Magnesium 2.2 (1.6-2.3) mg/dL Total Bilirubin 0.8 (0.2-1.3) mg/dL AST 34 (17-59) U/L ALT 19 (4-49) U/L Alkaline Phosphatase 149 H (38-126) U/L Total Protein 5.5 L (6.3-8.2) g/dL Albumin 3.1 L (3.5-5.0) g/dL Disposition Clinical Impression: Abnormal laboratory test Disposition: HOME SELF-CARE Condition: Good Additional Instructions: Please follow-up with your primary care provider. Your potassium was normal on recheck. Is patient prescribed a controlled substance at d/c from ED?: No Referrals: [facility] [Primary Care Provider] - 1-2 days Time of Disposition: 11:50
[2024-02-09 10:51] LABS: Anisocytosis Slight; Basophils % (A) 0 %; Eosinophils # (A) 0.2 k/uL (0-0.7); Eosinophils % (A) 5 %; HGB 11.1 gm/dL (13.0-17.5); Hypochromasia Slight; Lymphocytes # (A) 0.6 k/uL (1.0-4.8); Lymphocytes % (A) 14 %; MCH 28.2 pg (25.0-35.0); MCHC 31.6 g/dL (31.0-37.0); MCV 89.1 fL (80.0-100.0); Mean Platelet Volume 8.1; Monocytes # (A) 0.3 k/uL (0-1.0); Monocytes % (A) 7 %; Neutrophils # (A) 2.9 k/uL (1.3-7.7); Neutrophils % (A) 71 %; RBC 3.93 m/uL (4.30-5.90); RDW 17.2 % (11.5-15.5); WBC 4.1 k/uL (3.8-10.6)
[2024-02-09 10:52] LABS: Glucose,Whole Blood 149 mg/dL (70-110)
[2024-02-09] MEDS: SODIUM CHLORIDE 0.9% 500 ML 500 ML IV ONE (10:54)
[2024-02-09 11:06] LABS: ALT 19 U/L (4-49); AST 34 U/L (17-59); African American GFR (CKD) >90 (>60 ml/min/1.73 sqM); Albumin 3.1 g/dL (3.5-5.0); Alkaline Phosphatase 149 U/L (38-126); Anion Gap 2 mmol/L; Blood Urea Nitrogen 16 mg/dL (9-20); Calcium 8.8 mg/dL (8.4-10.2); Carbon Dioxide 30 mmol/L (22-30); Chloride 103 mmol/L (98-107); Glucose 122 mg/dL (74-99); Magnesium 2.2 mg/dL (1.6-2.3); Non-African American GFR(CKD) 79 (>60 ml/min/1.73 sqM); Potassium 3.7 mmol/L (3.5-5.1); Sodium 135 mmol/L (137-145); Total Bilirubin 0.8 mg/dL (0.2-1.3); Total Protein 5.5 g/dL (6.3-8.2)
[2024-02-09 11:40] LABS: Platelet Count 77 k/uL (150-450)
[2024-02-09 12:07] VITALS: BP 99/62; PULSE 70; RESP 18; TEMP 97.2
== END 2024-02-09 12:07 | disposition home or self-care (01) ==
LOC: EC 10:17
DX: E87.5 Hyperkalemia (principal); Z88.0 Allergy status to penicillin; Z88.8 Allergy status to other drugs, medicaments and biological substances; Z87.891 Personal history of nicotine dependence; Z79.84 Long term (current) use of oral hypoglycemic drugs; Z90.89 Acquired absence of other organs
CPT/HCPCS: 36415; 80053; 83735; 85025; 93005; 96360; 99285